=== PATIENT | male | born 1930 | race American Indian/Alaskan Native ===

== ENCOUNTER 2016-12-26 13:27 | Inpatient (IN) | payer OTHER ==
[~2016-12-26] VITALS: Ht 182.9 cm; Wt 92.1 kg
[2016-12-26 14:22] LABS: BASOPHILS % 0.4 % (0.0-2.0); EOSINOPHILS # 0.2 10^3/ul (0.0-0.5); EOSINOPHILS % 3.3 % (0.0-7.0); HEMOGLOBIN 9.7 g/dl (14.0-18.0); LYMPHOCYTES # 0.6 10^3/ul (0.8-2.9); LYMPHOCYTES % 9.1 % (15.0-51.0); MEAN CORPUSCULAR HEMOGLOBIN 27.2 pg (29.0-33.0); MEAN CORPUSCULAR HGB CONC 30.3 g/dl (32.0-37.0); MEAN CORPUSCULAR VOLUME 89.9 fl (82.0-101.0); MEAN PLATELET VOLUME 10.5 fl (7.4-10.4); MONOCYTE # 0.7 10^3/ul (0.3-0.9); NEUTROPHILS % 76.8 % (39.0-77.0); PLATELET COUNT 206 10^3/UL (140-415); RED BLOOD COUNT 3.56 10^6/ul (4.70-6.10); RED CELL DISTRIBUTION WIDTH 17.2 % (11.5-14.5)
[2016-12-26] MEDS ORDERED: AMIT25TA9 PO (14:35)
[2016-12-26] MEDS ORDERED: ASPI-664 PO (14:35)
[2016-12-26] MEDS ORDERED: LORA0.5T PO (14:36)
[2016-12-26] MEDS ORDERED: DOCU-159 PO (14:36)
--- NOTE | 2016-12-26 14:36 | RADRPT ---
PROCEDURE: XR Chest. CLINICAL INDICATION: Chest Pain. TECHNIQUE: Frontal chest x-ray was obtained. COMPARISON: None. FINDINGS: There is a suboptimal inspiratory effort. Noted is mild cardiomegaly. There is widening of the superior mediastinum compatible with ectatic v essels. No hilar masses seen. There are increased perihilar bronchovascular markings. Noted is el evation right hemidiaphragm. There is atelectasis at the right lung base. No effusion or pneumotho rax is seen. IMPRESSION: Cardiomegaly with mild central pulmonary vascular congestion. Elevated right hemidiaphragm. Right basilar atelectasis. No alveolar infiltrate or mass. .Jean-Claude Blake MD, MD Date Time Electronically viewed and signed by .Jean-Claude Blake MD, on 12/26/2016 14:35 .A/
[2016-12-26] MEDS ORDERED: TAMS0.4C2 PO (14:37)
[2016-12-26] MEDS ORDERED: RISP0.5T3 PO (14:40)
[2016-12-26] MEDS ORDERED: MEMA5TAB PO (14:40)
[2016-12-26] MEDS ORDERED: DONE10TA7 PO (14:41)
[2016-12-26 14:44] LABS: INR 1.41; PROTIME 17.3 Sec (12.2-14.2); PT RATIO 1.4
[2016-12-26 14:45] LABS: PARTIAL THROMBOPLASTIN TIME 32.4 Sec (25.0-35.0)
[2016-12-26 16:21] LABS: CALCIUM 8.6 mg/dl (8.4-10.2); CREATININE 1.1 mg/dl (0.61-1.24); POTASSIUM 4.8 mmol/L (3.5-5.1)
[2016-12-26 16:32] LABS: TROPONIN-I 0.046 ng/ml (0.00-0.12)
[2016-12-26] MEDS ORDERED: SOD CHLORIDE 0.9% 1,000 ML IV SCH ×2 (17:17→17:50)
--- NOTE | 2016-12-26 17:25 | ERA ---
ER Documentation Chief Complaint Date/Time DATE: 12/26/16 TIME: 17:20 Chief Complaint SYNCOPAL EPISODE WHILE WALKING WITNESSED BY DAUGHTER. NO NEURO CHANGES. HPI This is an 86-year-old male presents to the emergency room for evaluation of a syncopal episode. According to the daughter the patient was walking in his care home and felt dizzy momentarily lost consciousness. He did not hit his head because nursing staff caught him. The patient does have a history of dementia and is unable to give a detailed history. The patient was brought to the emergency room for further evaluation. He denies any active chest pain shortness of breath or dizziness at this time. ROS All systems reviewed and are negative except as per history of present illness. Medications Home Meds Reported Medications Donepezil* (Donepezil*) 10 Mg Tablet, 10 MG PO DAILY, #30 TAB 12/26/16 Memantine* (Namenda*) 5 Mg Tablet, 5 MG PO BID, #60 TAB 12/26/16 Risperidone* (Risperidone*) 0.5 Mg Tablet, 0.5 MG PO QHS, TAB 12/26/16 Tamsulosin Hcl* (Tamsulosin Hcl*) 0.4 Mg Cap.er.24h, 0.4 MG PO HS, CAP 12/26/16 Lorazepam* (Lorazepam*) 0.5 Mg Tablet, 0.5 MG PO Q4 Y for PAIN, TAB 12/26/16 Docusate Sodium* (Docusate Sodium*) 100 Mg Capsule, 200 MG PO QHS, #60 CAP 12/26/16 Aspirin* (Aspirin* EC) 81 Mg Tablet.dr, 81 MG PO DAILY, TAB 12/26/16 Amitriptyline Hcl* (Amitriptyline Hcl*) 25 Mg Tablet, 25 MG PO QHS, #30 TAB 12/26/16 Allergies Allergies: Coded Allergies: No Known Allergy (Unverified , 12/26/16) PMhx/Soc Hx Alcohol Use: No Hx Substance Use: No Hx Tobacco Use: No Smoking Status: Unknown if ever smoked Physical Exam Vitals Vital Signs Date Time Temp Pulse Resp B/P Pulse Ox O2 Delivery O2 Flow Rate FiO2 12/26/16 15:00 98.9 83 19 122/65 100 Room Air 12/26/16 13:31 98.9 90 18 129/67 98 Physical Exam INITIAL VITAL SIGNS: Reviewed by me GENERAL: The patient is well developed and appropriate for usual state of health in no apparent distress HEENT: Pupils equal, round, and reactive to light. EOMI. There is no scleral icterus. NECK: C-spine is soft and supple, there is no meningismus. There is no cervical lymphadenopathy. LUNGS: Clear to auscultation bilaterally. There are no rales, wheezes or rhonchi. HEART: Irregularly irregular rhythm, , no murmurs, clicks, rubs or gallops. ABDOMEN: Soft, non-tender, non-distended. There are bowel sounds in all four quadrants. No rebound or guarding. EXTREMITIES: There is no peripheral cyanosis or edema. No focal swelling or erythema. NEUROLOGICAL: The patient moves all four extremities with 5/5 strength. Cranial nerves II - XII are intact. Normal gait. Alert and oriented SKIN: There is no apparent rash or petechiae. HEME/LYMPHATIC: There is no evidence of excessive bruising or lymphedema. PSYCHIATRIC: The patient does not appear anxious or depressed. Result Diagram: 12/26/16 1402 12/26/16 1545 Results 24 hrs Laboratory Tests Test 12/26/16 14:02 12/26/16 15:45 White Blood Count 7.010^3/ul Red Blood Count 3.5610^6/ul Hemoglobin 9.7g/dl Hematocrit 32.0% Mean Corpuscular Volume 89.9fl Mean Corpuscular Hemoglobin 27.2pg Mean Corpuscular Hemoglobin Concent 30.3g/dl Red Cell Distribution Width 17.2% Platelet Count 45308^3/UL Mean Platelet Volume 10.5fl Neutrophils % 76.8% Lymphocytes % 9.1% Monocytes % 10.0% Eosinophils % 3.3% Basophils % 0.4% Nucleated Red Blood Cells % 0.0/100WBC Neutrophils # (Manual) 510^3/ul Lymphocytes # 0.610^3/ul Monocytes # 0.710^3/ul Eosinophils # 0.210^3/ul Basophils # 0.010^3/ul Nucleated Red Blood Cells # 0.010^3/ul Prothrombin Time 17.3Sec Prothrombin Time Ratio 1.4 INR International Normalized Ratio 1.41 Activated Partial Thromboplast Time 32.4Sec Sodium Level 141mmol/L Potassium Level 4.8mmol/L Chloride Level 103mmol/L Carbon Dioxide Level 23mmol/L Anion Gap 20 Blood Urea Nitrogen 47mg/dl Creatinine 1.10mg/dl Glucose Level 115mg/dl Calcium Level 8.6mg/dl Troponin I 0.046ng/ml Current Medications Medications (Trade) Dose Ordered Sig/Elbert Route PRN Reason Start Time Stop Time Status Last Admin Dose Admin Aspirin (Aspirin) 325 mg ONCE ONCE PO 12/26/16 17:30 12/26/16 17:31 Procedures/MDM EKG: Rate/Rhythm: A. fib QRS, ST, T-waves: [No changes consistent w/ acute ischemia] Impression: Atrial fibrillation Chest X-ray 1V Interpreted by me: Soft Tissue: No acute abnormalities Bones: No acute abnormalities Mediastinum/Cardiac Silhouette/Lungs: [No acute abnormalities]\ This 86-year-old male presents to the emergency room for evaluation of a syncopal episode. This patient had momentary loss of consciousness while walking in his care home. When I evaluated this patient is hemodynamically stable, however he could not give a detailed history secondary to his dementia. His daughter is at bedside and states the patient is at his normal baseline mental status. Lab work was obtained including EKG which showed atrial fibrillation. This patient has no previous history of atrial fibrillation and given his recent syncopal episode he will be placed in for admission at this time for echocardiogram, cardiology evaluation. The patient was given a full dose aspirin in the emergency room of 325 mg. I did not start heparin on this patient given his fall history. Departure Diagnosis: Primary Impression: Syncope Additional Impression: New onset atrial fibrillation Condition: Stable QUINCY BASHIR DO Dec 26, 2016 17:25
[2016-12-26] MEDS ORDERED: ACETAMINOPHEN 325 MG TAB PO PRN (17:30)
[2016-12-26] MEDS ORDERED: ASPIRIN 325 MG TAB PO ONE (17:30)
[2016-12-26] MEDS ORDERED: ONDANSETRON 4 MG INJ IV PRN ×2 (17:30→18:00)
[2016-12-26] MEDS ORDERED: NACL 0.9% 3 ML SYG IV SCH (18:00)
[2016-12-26 18:18] LABS: ADD UMIC YES; UR ASCORBIC ACID 20 mg/dL (NEGATIVE); UR BILIRUBIN (Dip) NEGATIVE (NEGATIVE); UR BLOOD (Dip) NEGATIVE (NEGATIVE); UR CLARITY SLIGHTLY CLOUDY (CLEAR); UR COLOR YELLOW (YELLOW); UR GLUCOSE (Dip) NEGATIVE (NEGATIVE); UR KETONES (Dip) NEGATIVE (NEGATIVE); UR LEUKOCYTE ESTERASE (Dip) NEGATIVE Leu/ul (NEGATIVE); UR MUCUS FEW /HPF (NONE SEEN); UR NITRITE (Dip) NEGATIVE (NEGATIVE); UR RBC 1 /HPF (0-5); UR SPECIFIC GRAVITY (Dip) 1.023 (1.003-1.030); UR TOTAL PROTEIN (Dip) 2+ mg/dl (NEGATIVE); UR UROBILINOGEN (Dip) 2+ mg/dL (NEGATIVE)
--- NOTE | 2016-12-26 18:27 | HP ---
Date/Time of Note Date/Time of Note DATE: 12/26/16 TIME: 18:05 Assessment/Plan VTE Prophylaxis VTE Prophylaxis Intervention: heparin Lines/Catheters IV [facility]ter [facility] (from [facility]): Saline Lock Assessment/Plan Chief Complaint/Hosp Course Patient is a 86-year-old male with a past medical history significant for moderate to severe dementia who presents to [facility] for a syncopal episode, found to be in A. fib. Assessment and problem list Atrial fibrillation, rate controlled Syncope, momentary with no residual effect Dementia, moderate to severe BPH Mood disorder, questionable likely secondary to dementia Anemia, normocytic Pulmonary edema cardiomegaly Plan -Cardiology has been consulted for new onset A. fib, currently rate is within acceptable limits. Echocardiogram pending -chads2 1-2 depending if patient actually has a-fib, has-bled score 2, which has a 4.1% risk in one study for major bleed. This patient is mod risk based on has-bled, but combined with fall risk, as patient has mod-severe dementia, refusing to use assistance, and recent fall, patient would be a higher risk candidate for anticoagulation. Will defer to cardiology recs for anti- coagulation. -Likely multifactorial, after reviewing patient's medication list from the shelter, patient was given scheduled Ativan multiple times a day as well as Risperdal, all which could affect mentation and cause a syncopal episode, combined with new onset arrhythmia and an elevated BUN to creatinine ratio which may show signs of volume depletion, may have caused his syncopal episode. -UA and U tox pending -Continue home meds as able -prelim workup for anemia ordered -Although Ativan may have caused patient syncopal episode, patient has been getting scheduled Ativan for many months if not years, will make it available as patient may go through withdrawal if unavailable. -Patient was given 1 L of fluids, given questionable CHF findings on chest x-ray , will be cautious with fluids -We will monitor closely on the telemetry floor. Problems: HPI/ROS Admit Date/Time Admit Date/Time Hx of Present Illness Patient is a 86-year-old male with a past medical history of moderate to severe dementia, mood disorder, BPH who presents to [facility] after a syncopal episode at the shelter. Patient's daughter was visiting the patient and taking them on a walk when patient had a brief 2 second syncopal episode which he spontaneously returned to baseline without any residual effects. Patient is currently at baseline mentation per daughter, most of the HPI is taken from daughter at bedside as patient is baseline altered due to his dementia. Patient has been taking medication including Ativan and Risperdal at his shelter given the fact that he would try to leave on his own and would likely get lost. Patient has no apparent history of cardiac or arrhythmia and appears to have good follow-up with medical care. Patient also has mild impairment with ambulation, however patient refuses to use a cane. Patient's diet is varied and patient has a very healthy appetite. Patient does not complain of any chest pain, shortness of breath, difficulty ambulating, nausea, vomiting, pain at this time. Patient does converse in Malagasy, and appears oriented, however does have moments of confusion due to his long-standing history of dementia. Patient admitted for new onset a-fib and syncope. PMH: Dementia, BPH, mood disorder questionable likely secondary to dementia PSH: None Social: Denies smoking, drinking, drugs Meds: Aspirin, donepezil, amitriptyline, Ativan scheduled, Namenda, Risperdal, Flomax PMH/Family/Social Social History Smoking Status: Unknown if ever smoked Exam/Review of Systems Vital Signs Vitals Vital Signs Date Time Temp Pulse Resp B/P Pulse Ox O2 Delivery O2 Flow Rate FiO2 12/26/16 15:00 98.9 83 19 122/65 100 Room Air Exam Exam Physical exam General: Patient is laying in bed and answers questions Mentation: Patient is alert and oriented to person,place, questionable to situation and follow command Head: Normocephalic atraumatic Eyes: EOMI, pupils reactive to light Neck: Supple, nontender, midline Respiratory: Clear to auscultation bilaterally Cardiovascular: regular rate, no obvious murmurs Gastrointestinal: non-tender to palpation, bowel sounds heard. Neurological: Moves all extremities spontaneously Skin: very mild 2+ non-pitting edema bilat LE Labs Result Diagram: 12/26/16 1402 12/26/16 1545 Medications Medications Current Medications Sodium Chloride (NS) 1,000 ml @ 80 mls/hr [id number] IV Last administered on 12/26t 17:38; Admin Dose 80 MLS/HR; Start 12/26/16 at 17:17; Stop 12/27/16 at 05: 46 Ondansetron HCl (Zofran Inj) 4 mg Q6H PRN IV NAUSEA AND/OR VOMITING; Start at 18:00; Status UNV Heparin Sodium (Porcine) (Heparin (5000 Units/0.5 ml)) 5,000 unit Q8 SC ; Start 12/26/16 at 22:00; Status UNV Amitriptyline HCl (Elavil) 25 mg QHS PO ; Start 12/26/16 at 21:00; Status UNV Aspirin (Halfprin) 81 mg DAILY PO ; Start 12/27/16 at 09:00; Status UNV Docusate Sodium (Colace) 200 mg QHS PO ; Start 12/26/16 at 21:00; Status UNV Donepezil HCl (Aricept) 10 mg DAILY PO ; Start 12/27/16 at 09:00; Status UNV Memantine (Namenda) 5 mg BID PO ; Start 12/26/16 at 21:00; Status UNV Risperidone (Risperdal) 0.5 mg QHS PO ; Start 12/26/16 at 21:00; Status UNV Tamsulosin HCl (Flomax) 0.4 mg HS PO ; Start 12/26/16 at 21:00; Status UNV MARYSE BRAVO Dec 26, 2016 18:21
[2016-12-26 19:26] LABS: BARBITURATES Negative (NEGATIVE); BENZODIAZEPINES Negative (NEGATIVE); CANNABINOIDS Negative (NEGATIVE); COCAINE Negative (NEGATIVE); OPIATES Negative (NEGATIVE)
[2016-12-26 20:08] LABS: TROPONIN-I 0.051 ng/ml (0.00-0.12)
[2016-12-26 20:11] LABS: CK-MB 3.35 ng/ml (0.0-2.4)
[2016-12-26 20:50] VITALS: TEMP 98.9
[2016-12-26] MEDS: AMITRIPTYLINE 25 MG TAB PO SCH (21:00)
[2016-12-26 21:18] VITALS: PULSE 93
[2016-12-26 21:55] VITALS: Ht 182.9 cm; Wt 92.1 kg
[2016-12-26] MEDS ORDERED: ZOLPIDEM 5 MG TAB PO ONE (23:00)
[2016-12-26] MEDS: TAMSULOSIN (SR) 0.4 MG CAP PO SCH (23:35)
[2016-12-26] MEDS: MEMANTINE 5 MG TAB PO SCH (23:36)
[2016-12-26] MEDS: RISPERIDONE 0.25 MG TAB PO SCH (23:36)
[2016-12-26] MEDS: DOCUSATE SODIUM 100 MG CAP PO SCH (23:36)
[2016-12-26] MEDS: HEPARIN 5,000 UNIT/0.5 ML VIAL SC SCH (23:37)
[2016-12-26 23:59] VITALS: BP 117/68; RESP 18
[2016-12-27] VITALS (13 sets, daily range): BP systolic 113–121; BP diastolic 62–87; PULSE 43–96; RESP 16–19
[2016-12-27] MEDS: IPRATROPIUM (NEB) 0.5 MG/2.5 ML AMP HHN PRN (01:28)
[2016-12-27] MEDS: LEVALBUTEROL (NEB) 0.63 MG/3 ML AMP HHN PRN (01:28)
--- NOTE | 2016-12-27 02:46 | RADRPT ---
PROCEDURE: Noncontrast CT Head. CLINICAL INDICATION: Syncopal episode TECHNIQUE: Noncontrast CT of the head was obtained. The administered radiation dose was CTDI vol = 41 mGy, DLP = 810 mGy-cm. COMPARISON: No pertinent prior examinations were submitted for comparison. FINDINGS: The ventricles and cortical sulci are moderately enlarged. There is moderate decreased attenuation within the periventricular and subcortical white matter compatible with chronic microvascular change s. There is no acute intracranial hemorrhage or extra-axial fluid collection. There is no mass effect . No midline shift is identified. There is no loss of kearney-white differentiation to suggest acute in farction. The orbits are within normal limits. The paranasal sinuses are well aerated. No destructive osseous lesion is identified. IMPRESSION: No acute findings. Moderate diffuse parenchymal volume loss and chronic microvascular changes. RPTAT: HIKT .Hunter Aburto MD, MD Date Time Electronically viewed and signed by .Hunter Aburto MD, on 12/27/2016 02:46 .T/
[2016-12-27 03:25] LABS: TROPONIN-I 0.049 ng/ml (0.00-0.12)
[2016-12-27 03:30] LABS: CK-MB 2.86 ng/ml (0.0-2.4)
[2016-12-27 06:39] LABS: RETICULOCYTE COUNT % 3.2 % (0.5-1.5)
[2016-12-27 06:40] LABS: ABNORMAL IP MESSAGE 1; BASOPHILS % 0.4 % (0.0-2.0); EOSINOPHILS # 0.1 10^3/ul (0.0-0.5); HEMATOCRIT 29.3 % (42.0-52.0); LYMPHOCYTES # 0.6 10^3/ul (0.8-2.9); LYMPHOCYTES % 7.7 % (15.0-51.0); MEAN CORPUSCULAR HEMOGLOBIN 27.4 pg (29.0-33.0); MEAN CORPUSCULAR HGB CONC 30.7 g/dl (32.0-37.0); MEAN CORPUSCULAR VOLUME 89.3 fl (82.0-101.0); MEAN PLATELET VOLUME 10.7 fl (7.4-10.4); MONOCYTE # 0.6 10^3/ul (0.3-0.9); MONOCYTES % 8.2 % (0.0-11.0); NEUTROPHILS % 82.3 % (39.0-77.0); PLATELET COUNT 194 10^3/UL (140-415); POSITIVE DIFF @See below; RED BLOOD COUNT 3.28 10^6/ul (4.70-6.10); RED CELL DISTRIBUTION WIDTH 17.3 % (11.5-14.5); WHITE BLOOD COUNT 7.2 10^3/ul (4.8-10.8)
[2016-12-27] MEDS: HEPARIN 5,000 UNIT/0.5 ML VIAL SC SCH ×3 (06:51→23:25)
[2016-12-27 07:12] LABS: ALBUMIN 3.3 g/dl (3.3-4.9); BILIRUBIN,INDIRECT 0.7 mg/dl (0-1.1); BILIRUBIN,TOTAL 0.7 mg/dl (0.2-1.3); TOTAL PROTEIN 6.4 g/dl (6.1-8.1)
[2016-12-27 07:13] LABS: IRON 22 ug/dl (35-150)
[2016-12-27 07:14] LABS: CALCIUM 8.4 mg/dl (8.4-10.2); CREATININE 1.13 mg/dl (0.61-1.24); MAGNESIUM 2.2 mg/dl (1.7-2.5); PHOSPHORUS 4.3 mg/dl (2.5-4.9); POTASSIUM 4.6 mmol/L (3.5-5.1)
[2016-12-27 07:22] LABS: TOTAL IRON BINDING CAPACITY 278 ug/dl (241-421)
[2016-12-27 07:44] LABS: FERRITIN 40.7 ng/ml (11.1-264.0)
--- NOTE | 2016-12-27 09:10 | RADRPT ---
PROCEDURE: XR Chest. CLINICAL INDICATION: 86-year-old male with "edema". TECHNIQUE: Single frontal view of the chest was obtained. COMPARISON: None FINDINGS: Monitor electrodes project across the chest. Degenerative osteophytes are noted in the thoracic and upper lumbar spine. The heart is enlarged with elevation of the right diaphragm. The cardiomedias tinal silhouette and hilar structures are normal. The pulmonary vasculature is equilibrated. There are atherosclerotic calcifications in the ectatic left-sided thoracic aorta. There are interstitial perihilar infiltrates with areas of plate-like atelectasis in the right lower lung field. There are bilateral pleural effusions. The right pleural effusion is larger. IMPRESSION: 1. Cardiomegaly with mild CHF and early interstitial pulmonary edema associated with small pleural e ffusions. 2. Elevated right hemidiaphragm. This finding is little changed as compared to a prior chest x-ray dated 12/26/2016. 3. 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 4. Atherosclerotic vascular disease. RPTAT:AAJJ Physician Ibrahima Date Time Electronically viewed and signed by Physician Ibrahima on 12/27/2016 09:10 /
[2016-12-27] MEDS: DONEPEZIL 10 MG TAB PO SCH ×2 (11:03→12:45)
[2016-12-27] MEDS: ASPIRIN (EC) 81 MG TAB PO SCH ×2 (11:04→12:45)
[2016-12-27] MEDS: MEMANTINE 5 MG TAB PO SCH ×3 (11:04→20:35)
--- NOTE | 2016-12-27 11:36 | CONS ---
DATE OF ADMISSION: 12/26/2016 DATE OF CONSULTATION: 12/27/2016 REASON FOR CONSULTATION: Syncope, newly diagnosed atrial fibrillation. HISTORY OF PRESENT ILLNESS: The patient is an 86-year-old gentleman with moderate to severe dementia. Most of my history is obtained from the chart review as the patient is unable to provide further history. Apparently, his daughter was visiting him when the patient was noted to have a 2 second loss of consciousness with return to baseline. He has been on antipsychotic and sedatives. After being admitted here, he was diagnosed with atrial fibrillation and a controlled rate. Currently, he appears at baseline. On x-ray, pulmonary edema is noted as well. PAST MEDICAL HISTORY: 1. Dementia. 2. BPH. MEDICATIONS PRIOR TO ADMISSION: 1. Aspirin. 2. Donepezil. 3. Amitriptyline. 4. Ativan. 5. Namenda. 6. Respirdal. 7. Flomax. PHYSICAL EXAMINATION: GENERAL: He is resting comfortably in the hospital bed in no distress. VITAL SIGNS: Temperature 98.2, pulse 76, blood pressure 118/66. CARDIAC: Reveals an irregularly irregular rhythm with slight systolic murmur appreciated. LUNGS: Clear to auscultation bilaterally. ABDOMEN: Soft. EXTREMITIES: Reveal no edema. MEDICATIONS REVIEWED: 1. Aspirin. 2. Donepezil. 3. Levalbuterol. 4. Amitriptyline. 5. Namenda. 6. Respirdal. 7. Flomax. 8. Lorazepam. LABORATORY: Results reviewed, anemia noted. Hematocrit 29.3, platelet count 194. Sodium 139, potassium 4.6, BUN 45, creatinine 1.1. ASSESSMENT: Newly diagnosed atrial fibrillation, chronicity is difficult to assess given the patient's inability to provide history and apparent lack of symptoms. Dr. Dragan Wall's assessment of the need for anticoagulation is appreciated. Given the patient's dementia, it is a difficult decision to make as I do not know him. While he does qualify for anticoagulation from a CHADS risk perspective, I will defer the ultimate decision to his physician at his [facility] facility who knows whether or not he is too high risk for anticoagulation as he reported he has noncompliance and frequent falls. His rate is controlled. As such, I would not add any other medications. His syncope is questionable whether it is cardiac or perhaps due to over medication with sedatives. An echocardiogram is pending. I do not believe further work up is necessitated at this time. Dictated By: Vitor Yang MD /[email or web address]/[email or web address] /Document#: [id number]
[2016-12-27] MEDS: LEVETIRACETAM 500 MG (PMX) 100 ML IVPB SCH ×2 (12:16→21:15)
--- NOTE | 2016-12-27 13:45 | PN ---
Date/Time of Note Date/Time of Note DATE: 12/27/16 TIME: 13:41 Assessment/Plan VTE Prophylaxis VTE Prophylaxis Intervention: heparin Lines/Catheters IV Catheter Type (from [facility]): Saline Lock Urinary Cath still in place: No Assessment/Plan Chief Complaint/Hosp Course Patient is a 86-year-old male with a past medical history significant for moderate to severe dementia who presents to [facility] for a syncopal episode, found to be in A. fib. Assessment and problem list Atrial fibrillation, rate controlled Syncope, momentary with no residual effect ?seizure Dementia, moderate to severe BPH Mood disorder, questionable likely secondary to dementia Anemia, normocytic Pulmonary edema cardiomegaly Plan -new onset possible seizure overnight. CT neg for CVA. neurology, Dr. Reyes consulted. MRI and EEG ordered. started keppra. -Cardiology has been consulted for new onset A. fib, currently rate is within acceptable limits. Echocardiogram pending. -chads2 1-2 depending if patient actually has a-fib, has-bled score 2, which has a 4.1% risk in one study for major bleed. This patient is mod risk based on has-bled, but combined with fall risk, as patient has mod-severe dementia, refusing to use assistance, and recent fall, patient would be a higher risk candidate for anticoagulation. Will defer to cardiology recs for anti- coagulation. -patient negative for benzo, medication list is likely outdated. -Continue home meds as able -prelim workup for anemia shows mixed possibilities. components show iron deficiency more likely. monitor for now, transfuse as needed. Will consider heme /onc consult if needed. -We will monitor closely on the telemetry floor. Problems: Subjective 24 Hr Interval Summary Free Text/Dictation resting comfortably in bed Exam/Review of Systems Vital Signs Vitals Vital Signs Date Time Temp Pulse Resp B/P Pulse Ox O2 Delivery O2 Flow Rate FiO2 12/27/16 13:35 85 12/27/16 11:25 98.3 17 113/62 100 12/27/16 09:13 3.0 12/27/16 08:00 Nasal Cannula Intake and Output 12/26/16 12/26/16 12/27/16 14:59 22:59 06:59 Intake Total 400 ml Balance 400 ml Exam Physical exam General: Patient is laying in bed and answers questions Mentation: Patient is alert and oriented to person,place, questionable to situation, but follows command Head: Normocephalic atraumatic Eyes: EOMI, pupils reactive to light Neck: Supple, nontender, midline Respiratory: Clear to auscultation bilaterally Cardiovascular: regular rate, no obvious murmurs Gastrointestinal: non-tender to palpation, bowel sounds heard. Neurological: Moves all extremities spontaneously Skin: very mild 2+ non-pitting edema bilat LE Results Result Diagram: 12/27/1628 12/27/1628 Results 24 hrs Laboratory Tests Test 12/26/16 14:02 12/26/16 15:45 12/26/16 17:52 12/26/16 19:00 White Blood Count 7.0 Red Blood Count 3.56 L Hemoglobin 9.7 L Hematocrit 32.0 L Mean Corpuscular Volume 89.9 Mean Corpuscular Hemoglobin 27.2 L Mean Corpuscular Hemoglobin Concent 30.3 L Red Cell Distribution Width 17.2 H Platelet Count 206 Mean Platelet Volume 10.5 H Neutrophils % 76.8 Lymphocytes % 9.1 L Monocytes % 10.0 Eosinophils % 3.3 Basophils % 0.4 Nucleated Red Blood Cells % 0.0 Neutrophils # (Manual) 5 Lymphocytes # 0.6 L Monocytes # 0.7 Eosinophils # 0.2 Basophils # 0.0 Nucleated Red Blood Cells # 0.0 Prothrombin Time 17.3 H Prothrombin Time Ratio 1.4 INR International Normalized Ratio 1.41 Activated Partial Thromboplast Time 32.4 Sodium Level 141 Potassium Level 4.8 Chloride Level 103 Carbon Dioxide Level 23 Anion Gap 20 H Blood Urea Nitrogen 47 H Creatinine 1.10 Glucose Level 115 Calcium Level 8.6 Troponin I 0.046 0.051 Urine Color YELLOW Urine Clarity SLIGHTLY CLOUDY A Urine pH 5.0 Urine Specific [place] 1.023 Urine Ketones NEGATIVE Urine Nitrite NEGATIVE Urine Bilirubin NEGATIVE Urine Urobilinogen 2+ H Urine Leukocyte Esterase NEGATIVE Urine Microscopic RBC 1 Urine Microscopic WBC 2 Urine Mucus FEW A Urine Hemoglobin NEGATIVE Urine Glucose NEGATIVE Urine Total Protein 2+ H Urine Opiates Screen Negative Urine Barbiturates Negative Urine Amphetamines Screen Negative Urine Benzodiazepines Screen Negative Urine Cocaine Screen Negative Urine Cannabinoids Negative Creatine Kinase 62 Creatine Kinase Index 5.4 Creatinine Kinase MB (Mass) 3.35 H Test 12/27/16 01:20 12/27/16 02:45 12/27/16 05:28 Bedside Glucose 123 Creatine Kinase 48 Creatine Kinase Index 6.0 Creatinine Kinase MB (Mass) 2.86 H Troponin I 0.049 White Blood Count 7.2 Red Blood Count 3.28 L Hemoglobin 9.0 L Hematocrit 29.3 L Mean Corpuscular Volume 89.3 Mean Corpuscular Hemoglobin 27.4 L Mean Corpuscular Hemoglobin Concent 30.7 L Red Cell Distribution Width 17.3 H Platelet Count 194 Mean Platelet Volume 10.7 H Neutrophils % 82.3 H Lymphocytes % 7.7 L Monocytes % 8.2 Eosinophils % 1.0 Basophils % 0.4 Nucleated Red Blood Cells % 0.0 Neutrophils # (Manual) 6 Lymphocytes # 0.6 L Monocytes # 0.6 Eosinophils # 0.1 Basophils # 0.0 Nucleated Red Blood Cells # 0.0 Absolute Reticulocyte Count 0.101 Percent Reticulocyte Count 3.2 H Sodium Level 139 Potassium Level 4.6 Chloride Level 107 Carbon Dioxide Level 22 Anion Gap 15 Blood Urea Nitrogen 45 H Creatinine 1.13 Glucose Level 102 Calcium Level 8.4 Phosphorus Level 4.3 Magnesium Level 2.2 Iron Level 22 L Total Iron Binding Capacity 278 Percent Iron Saturation 8 L Ferritin 40.7 Total Bilirubin 0.7 Direct Bilirubin 0.00 Indirect Bilirubin 0.7 Aspartate Amino Transf (AST/SGOT) 25 Alanine Aminotransferase (ALT/SGPT) 42 Alkaline Phosphatase 91 Lactate Dehydrogenase 511 Total Protein 6.4 Albumin 3.3 Medications Medications Current Medications Ondansetron HCl (Zofran Inj) 4 mg Q6H PRN IV NAUSEA AND/OR VOMITING; Start at 18:00 Heparin Sodium (Porcine) (Heparin (5000 Units/0.5 ml)) 5,000 unit Q8 SC Last administered on 12/27/16 06:51; Admin Dose 5,000 UNIT; Start 12/26/16 at 22:00 Amitriptyline HCl (Elavil) 25 mg QHS PO ; Start 12/26/16 at 21:00 Aspirin (Halfprin) 81 mg DAILY PO Last administered on 12/27/16 12:45; Admin Dose 81 MG; Start 12/27/16 at 09:00 Docusate Sodium (Colace) 200 mg QHS PO Last administered on 12/26/16 23:36; Admin Dose 200 MG; Start 12/26/16 at 21:00 Donepezil HCl (Aricept) 10 mg DAILY PO Last administered on 12/27/16 12:45; Admin Dose 10 MG; Start 12/27/16 at 09:00 Memantine (Namenda) 5 mg BID PO Last administered on 12/27/16 12:44; Admin Dose 5 MG; Start 12/26/16 at 21:00 Risperidone (Risperdal) 0.5 mg QHS PO Last administered on 12/26/16 23:36; Admin Dose 0.5 MG; Start 12/26/16 at 21:00 Tamsulosin HCl (Flomax) 0.4 mg HS PO Last administered on 12/26/16 23:35; Admin Dose 0.4 MG; Start 12/26/16 at 21:00 Lorazepam 0.5 mg 0.5 mg Q8H PRN IV agitation; Start 12/26/16 at 18:30 Levetiracetam (Keppra 500 Mg/ 100ml (Pmx)) 100 ml @ 400 mls/hr Q12 IVPB Last administered on 12/27/16 12:16; Admin Dose 400 MLS/HR; Start 12/27/16 at 11:30 MARYSE BRAVO Dec 27, 2016 13:45
--- NOTE | 2016-12-27 13:51 | CONS ---
Date/Time of Note Date/Time of Note DATE: 12/27/16 TIME: 13:43 Assessment/Plan Assessment/Plan Chief Complaint/Hosp Course An episode of passing out Problems: Additional Assessment/Plan Patient is an 86-year-old male with past medical history of severe dementia, benign prostatic hypertrophy was admitted following an episode of passing out, possible syncope. There is no history of shaking tongue bite or incontinence and has no history of seizure disorder. Neurological examination shows moderate dementia otherwise nonfocal. CT scan of the brain showed atrophy, chronic white matter disease, nothing acute. My impression is that he likely had syncope due to new onset atrial fibrillation. Doubt TIA or seizures. Plan 1 MRI of the brain 2 carotid ultrasound 3 EEG 4 no seizure medications at this time 5 discussed with patient's daughter who is present in the room 6 will follow Consultation Date/Type/Reason Admit Date/Time Date of Consultation: Dec 27, 2016 Reason for Consultation An episode of fall and possible syncope Referring Provider: MARYSE BRAVO Hx of Present Illness Patient is a 86-year-old male with a past medical history of moderate to severe dementia, mood disorder, BPH who presents to [facility] after a syncopal episode at the care home. He has been taking medication including Ativan and Risperdal at his care home. Patient has no apparent history of cardiac or arrhythmia and was found to have atrial fibrillation on admission and was also seen by cardiology as an inpatient. CT scan of the brain without contrast showed atrophy, chronic white matter disease , nothing acute. Constitutional: no complaints Eyes: no complaints ENT: no complaints Respiratory: no complaints Cardiovascular: no complaints Gastrointestinal: no complaints Genitourinary: no complaints Musculoskeletal: no complaints Skin: no complaints Neurologic: no complaints Endocrine: no complaints Lymphatic: no complaints Psychological: no complaints Immunologic: no complaints Past Medical History Medical History: other (BPH, severe dementia) Past Surgical History Past Surgical Hx: no surgical history Family History Significant Family History: no pertinent family hx Social History Alcohol Use: none Smoking Status: Never smoker Drug Use: none Exam/Review of Systems Vital Signs Vitals Vital Signs Date Time Temp Pulse Resp B/P Pulse Ox O2 Delivery O2 Flow Rate FiO2 12/27/16 13:35 85 12/27/16 11:25 98.3 17 113/62 100 12/27/16 09:13 3.0 12/27/16 08:00 Nasal Cannula Intake and Output 12/26/16 12/26/16 12/27/16 15:00 23:00 07:00 Intake Total 400 ml Balance 400 ml Exam Constitutional: alert, well developed Psych: nl mood/affect, no complaints Head: atraumatic, normocephalic Eyes: EOMI, nl conjunctiva, nl lids, nl sclera ENMT: mucosa pink and moist, nl external ears & nose, nl lips & teeth, nl nasal mucosa & septum Neck: non-tender, supple Respiratory: clear to auscultation, normal air movement Cardiovascular: nl pulses, regular rate and rhythm Gastrointestinal: nl liver, spleen, non-tender, soft Musculoskeletal: nl extremities to inspection Extremities: normal pulses Neurological: confused (Limited exam, cranial nerves appears intact, gag reflex and corneals are present, pupils are equally reacting, moving all extremities and withdraws appropriately to noxious stimulus) Skin: nl turgor Lymph: nl lymph nodes Results Result Diagram: 12/27/16 0528 12/27/16 0528 Results 24 hrs Laboratory Tests Test 12/26/16 14:02 12/26/16 15:45 12/26/16 17:52 12/26/16 19:00 White Blood Count 7.0 Red Blood Count 3.56 L Hemoglobin 9.7 L Hematocrit 32.0 L Mean Corpuscular Volume 89.9 Mean Corpuscular Hemoglobin 27.2 L Mean Corpuscular Hemoglobin Concent 30.3 L Red Cell Distribution Width 17.2 H Platelet Count 206 Mean Platelet Volume 10.5 H Neutrophils % 76.8 Lymphocytes % 9.1 L Monocytes % 10.0 Eosinophils % 3.3 Basophils % 0.4 Nucleated Red Blood Cells % 0.0 Neutrophils # (Manual) 5 Lymphocytes # 0.6 L Monocytes # 0.7 Eosinophils # 0.2 Basophils # 0.0 Nucleated Red Blood Cells # 0.0 Prothrombin Time 17.3 H Prothrombin Time Ratio 1.4 INR International Normalized Ratio 1.41 Activated Partial Thromboplast Time 32.4 Sodium Level 141 Potassium Level 4.8 Chloride Level 103 Carbon Dioxide Level 23 Anion Gap 20 H Blood Urea Nitrogen 47 H Creatinine 1.10 Glucose Level 115 Calcium Level 8.6 Troponin I 0.046 0.051 Urine Color YELLOW Urine Clarity SLIGHTLY CLOUDY A Urine pH 5.0 Urine Specific [place] 1.023 Urine Ketones NEGATIVE Urine Nitrite NEGATIVE Urine Bilirubin NEGATIVE Urine Urobilinogen 2+ H Urine Leukocyte Esterase NEGATIVE Urine Microscopic RBC 1 Urine Microscopic WBC 2 Urine Mucus FEW A Urine Hemoglobin NEGATIVE Urine Glucose NEGATIVE Urine Total Protein 2+ H Urine Opiates Screen Negative Urine Barbiturates Negative Urine Amphetamines Screen Negative Urine Benzodiazepines Screen Negative Urine Cocaine Screen Negative Urine Cannabinoids Negative Creatine Kinase 62 Creatine Kinase Index 5.4 Creatinine Kinase MB (Mass) 3.35 H Test 12/27/16 01:20 12/27/16 02:45 12/27/16 05:28 Bedside Glucose 123 Creatine Kinase 48 Creatine Kinase Index 6.0 Creatinine Kinase MB (Mass) 2.86 H Troponin I 0.049 White Blood Count 7.2 Red Blood Count 3.28 L Hemoglobin 9.0 L Hematocrit 29.3 L Mean Corpuscular Volume 89.3 Mean Corpuscular Hemoglobin 27.4 L Mean Corpuscular Hemoglobin Concent 30.7 L Red Cell Distribution Width 17.3 H Platelet Count 194 Mean Platelet Volume 10.7 H Neutrophils % 82.3 H Lymphocytes % 7.7 L Monocytes % 8.2 Eosinophils % 1.0 Basophils % 0.4 Nucleated Red Blood Cells % 0.0 Neutrophils # (Manual) 6 Lymphocytes # 0.6 L Monocytes # 0.6 Eosinophils # 0.1 Basophils # 0.0 Nucleated Red Blood Cells # 0.0 Absolute Reticulocyte Count 0.101 Percent Reticulocyte Count 3.2 H Sodium Level 139 Potassium Level 4.6 Chloride Level 107 Carbon Dioxide Level 22 Anion Gap 15 Blood Urea Nitrogen 45 H Creatinine 1.13 Glucose Level 102 Calcium Level 8.4 Phosphorus Level 4.3 Magnesium Level 2.2 Iron Level 22 L Total Iron Binding Capacity 278 Percent Iron Saturation 8 L Ferritin 40.7 Total Bilirubin 0.7 Direct Bilirubin 0.00 Indirect Bilirubin 0.7 Aspartate Amino Transf (AST/SGOT) 25 Alanine Aminotransferase (ALT/SGPT) 42 Alkaline Phosphatase 91 Lactate Dehydrogenase 511 Total Protein 6.4 Albumin 3.3 Medications Medications Current Medications Ondansetron HCl (Zofran Inj) 4 mg Q6H PRN IV NAUSEA AND/OR VOMITING; Start at 18:00 Heparin Sodium (Porcine) (Heparin (5000 Units/0.5 ml)) 5,000 unit Q8 SC Last administered on 12/27/16t 06:51; Admin Dose 5,000 UNIT; Start 12/26/16 at 22:00 Amitriptyline HCl (Elavil) 25 mg QHS PO ; Start 12/26/16 at 21:00 Aspirin (Halfprin) 81 mg DAILY PO Last administered on 12/27/16 12:45; Admin Dose 81 MG; Start 12/27/16 at 09:00 Docusate Sodium (Colace) 200 mg QHS PO Last administered on 12/26/16 23:36; Admin Dose 200 MG; Start 12/26/16 at 21:00 Donepezil HCl (Aricept) 10 mg DAILY PO Last administered on 12/27/16 12:45; Admin Dose 10 MG; Start 12/27/16 at 09:00 Memantine (Namenda) 5 mg BID PO Last administered on 12/27/16 12:44; Admin Dose 5 MG; Start 12/26/16 at 21:00 Risperidone (Risperdal) 0.5 mg QHS PO Last administered on 12/26/16 23:36; Admin Dose 0.5 MG; Start 12/26/16 at 21:00 Tamsulosin HCl (Flomax) 0.4 mg HS PO Last administered on 12/26/16 23:35; Admin Dose 0.4 MG; Start 12/26/16 at 21:00 Lorazepam 0.5 mg 0.5 mg Q8H PRN IV agitation; Start 12/26/16 at 18:30 Levetiracetam (Keppra 500 Mg/ 100ml (Pmx)) 100 ml @ 400 mls/hr Q12 IVPB Last administered on 12/27/16 12:16; Admin Dose 400 MLS/HR; Start 12/27/16 at 11:[address] brain 12/27/2016 IMPRESSION: No acute findings. Moderate diffuse parenchymal volume loss and chronic microvascular changes. RPTAT: HIKT .Hunter Aburto MD, MD Date Time Electronically viewed and signed by .Hunter Aburto MD, MD on 12/27/2016 02:46 KEVEN TREADWELL MD Dec 27, 2016 13:51
--- NOTE | 2016-12-27 16:28 | RADRPT ---
PROCEDURE: MR Brain without contrast. CLINICAL INDICATION: Seizure. TECHNIQUE: An MRI of the brain was performed on a 1.5 sandra scanner utilizing the following sequen dilia: Sagittal T1 weighted, axial T2 weighted, axial FLAIR, coronal GRE, and axial diffusion weighted with ADC mapping. COMPARISON: None FINDINGS: No evidence of restricted diffusion to suggest acute or early subacute ischemic infarction. There i s no evidence of intracranial hemorrhage, mass effect, or midline shift. No extra-axial fluid collec tions are seen. No hypointense signal abnormalities are seen on the GRE images to suggest the presence of blood degr adation products. Scattered nonspecific FLAIR/T2 signal hyperintensity foci in the subcortical and p eriventricular white matter compatible with sequelae of minimal chronic microvascular ischemic disea se. The brain parenchyma is normal in signal intensity and morphology with preservation of kearney white di fferentiation . The ventricles and subarachnoid spaces are moderately prominent compatible with a c entral cerebral and cerebellar volume loss. Grossly symmetric mesial temporal lobes given the degre e of cerebral volume loss. No gross evidence of cortical dysplasia or gliosis. The posterior fossa contents, brainstem, seventh - eighth cranial nerve complexes, pituitary axis, o rbits, paranasal sinuses, and mastoid air cells are unremarkable. Normal flow voids are visible in the proximal intracranial arteries and dural sinuses, indicating pa tency. IMPRESSION: 1. No acute or early subacute ischemic infarction or intracranial hemorrhage. 2. Mild chronic microvascular ischemic changes. 3. Moderate central cerebral and cerebellar volume loss. 4. No gross structural abnormality. RPTAT:AAJJ Physician Luis Manuel Date Time Electronically viewed and signed by Physician Luis Manuel on 12/27/2016 16:28 LAUREN/
--- NOTE | 2016-12-27 18:25 | RADRPT ---
PROCEDURE: Carotid Doppler ultrasound CLINICAL INDICATION: TIA TECHNIQUE: Carotid duplex criteria: Multiple real time, kearney scale, and color flow and spectral w aveform analysis Doppler ultrasound images of the carotid bifurcations were obtained. Measurements of carotid stenosis is based on peak systolic and diastolic velocity parameters that correlate the r esidual internal carotid diameter with [place] symptomatic carotid endarterectomy trial (NASC ET) based stenosis levels. COMPARISON: None. FINDINGS: On the right, there is heterogeneous irregular plaque at the internal carotid artery bulb . Visual estimate of the plaque is less than 50%. The peak systolic velocities are: Proximal CCA: 57.1 cm/sec. Distal CCA: 54.9 cm/sec. Proximal ICA/bulb: 54.9 cm/sec. Mid ICA: 71.2 cm/sec. Distal ICA: 85.4 cm/sec. ICA/CCA ratio: 1.3. There is no spectral broadening . The external carotid artery is patent. The vertebral artery has antegrade flow. On the left, there is mild heterogeneous irregular plaque at the internal carotid artery bulb . Vis ual estimate of the plaque is less than 50%. The peak systolic velocities are: Proximal CCA: 48.8 cm/sec. Distal CCA: 55.8 cm/sec. Proximal ICA/bulb: 72.5 cm/sec. Mid ICA: 68.1 cm/sec. Distal ICA: 60.4 cm/sec. ICA/CCA ratio: 1.2. There is no spectral broadening . The external carotid artery is patent. The vertebral artery has antegrade flow. IMPRESSION: 1. Less than 50% stenosis of the right internal carotid artery. 2. Less than 50% stenosis of the left internal carotid artery. 3. Antegrade flow in the vertebral arteries. PRIMARY PARAMETERS ADDITIONAL PARAMETERS DEGREE OF STENOSIS: ICA PSV cm/s PLAQUE ESTIMATE % ICA/CCA PSV RATIO ICA E DV cm/s NORMAL <125 cm/s NONE < 2.0 < 40 cm/s < 50% >125 cm/s < 50% > 2.0 > 40 cm/s 50% - 69% 125 -230 cm/s > 50% 2.0 - 4.0 40 - 100 cm/s >70% < OCCLUSION > 230 cm/s > 70% > 4.0 > 100 cm/s TOTAL OCCLUSION UNDETECTABLE VISIBLE PLAQUE 100% N/A N/A Mariah Dickinson, Physician Date Time Electronically viewed and signed by Mariah Dickinson Physician on 12/27/2016 18:25 LAUREN/
[2016-12-27] MEDS: DOCUSATE SODIUM 100 MG CAP PO SCH (20:35)
[2016-12-27] MEDS: RISPERIDONE 0.25 MG TAB PO SCH (20:35)
[2016-12-27] MEDS: AMITRIPTYLINE 25 MG TAB PO SCH (20:35)
[2016-12-27] MEDS: TAMSULOSIN (SR) 0.4 MG CAP PO SCH (20:35)
[2016-12-27] MEDS: LORAZEPAM 2 MG INJ IV PRN (20:57)
[2016-12-28] VITALS (11 sets, daily range): BP systolic 104–120; BP diastolic 56–81; PULSE 73–103; RESP 18–19
[2016-12-28] MEDS: HEPARIN 5,000 UNIT/0.5 ML VIAL SC SCH ×3 (07:01→21:38)
--- NOTE | 2016-12-28 07:57 | PN ---
Date/Time of Note Date/Time of Note DATE: 12/28/16 TIME: 07:55 Assessment/Plan VTE Prophylaxis VTE Prophylaxis Intervention: SCD's Lines/Catheters IV Catheter Type (from Nrs): Saline Lock Urinary Cath still in place: No Assessment/Plan Assessment/Plan Afib Mild CHF Azotemia OBS -Rate controlled afib -Possible hx of falls, so may need to avoid AC unless primary service feels patient a candidated for AC -No lasix as clinically with no overt CHF but mild congestion by CXR. Bun is 47 -will review echocardogram, Subjective 24 Hr Interval Summary Free Text/Dictation The patient with no change Exam/Review of Systems Vital Signs Vitals Vital Signs Date Time Temp Pulse Resp B/P Pulse Ox O2 Delivery O2 Flow Rate FiO2 12/28/16 07:42 97.7 79 18 104/56 97 12/28/16 04:41 3.0 12/27/16 20:20 Nasal Cannula Intake and Output 12/27/16 12/27/16 12/28/16 15:00 23:00 07:00 Intake Total 300 ml Balance 300 ml Results Result Diagram: 12/27/16 0528 12/27/16 0528 Medications Medications Current Medications Ondansetron HCl (Zofran Inj) 4 mg Q6H PRN IV NAUSEA AND/OR VOMITING; Start at 18:00 Heparin Sodium (Porcine) (Heparin (5000 Units/0.5 ml)) 5,000 unit Q8 SC Last administered on 12/28/16 07:01; Admin Dose 5,000 UNIT; Start 12/26/16 at 22:00 Amitriptyline HCl (Elavil) 25 mg QHS PO Last administered on 12/27/16 20:35; Admin Dose 25 MG; Start 12/26/16 at 21:00 Aspirin (Halfprin) 81 mg DAILY PO Last administered on 12/27/16 12:45; Admin Dose 81 MG; Start 12/27/16 at 09:00 Docusate Sodium (Colace) 200 mg QHS PO Last administered on 12/27/16 20:35; Admin Dose 200 MG; Start 12/26/16 at 21:00 Donepezil HCl (Aricept) 10 mg DAILY PO Last administered on 12/27/16 12:45; Admin Dose 10 MG; Start 12/27/16 at 09:00 Memantine (Namenda) 5 mg BID PO Last administered on 12/27/16 20:35; Admin Dose 5 MG; Start 12/26/16 at 21:00 Risperidone (Risperdal) 0.5 mg QHS PO Last administered on 12/27/16 20:35; Admin Dose 0.5 MG; Start 12/26/16 at 21:00 Tamsulosin HCl (Flomax) 0.4 mg HS PO Last administered on 12/27/16 20:35; Admin Dose 0.4 MG; Start 12/26/16 at 21:00 Lorazepam 0.5 mg 0.5 mg Q8H PRN IV agitation Last administered on 12/27/16 20: 57; Admin Dose 0.5 MG; Start 12/26/16 at 18:30 Levetiracetam (Keppra 500 Mg/ 100ml (Pmx)) 100 ml @ 400 mls/hr Q12 IVPB Last administered on 12/27/16 21:15; Admin Dose 400 MLS/HR; Start 12/27/16 at 11:30 BRIANNA MOORE MD Dec 28, 2016 07:57
--- NOTE | 2016-12-28 08:13 | RADRPT ---
Echocardiogram Report Patient Name: JJ EWING Gender: Male Date: 1930 Study Date: 27-Dec-2016 Supply Chain Technician: DEREK Location: I Ref. Physician: MARYSE BRAVO Quality: Adequate Procedures: Transthoracic echocardiogram with 2D, M-Mode, and Doppler examination, poor subcostal images. Indications: Atrial Fibrillation. Syncope. 2D/M Mode Doppler Measurement Value Normal Ranges Measurement Value Normal Ranges AoR Diam MM 3.9 cm DORA Vmax 0.6 cm2 LVIDd 2D 4.9 3.5 - 5.6 cm DORA VTI 0.6 cm2 LVIDs 2D 4.2 2.1 - 4.1 cm AV Mean Jose 2.7 m/sec LVPWd 2D 1.5 0.6 - 1.1 cm AV Mean PG 33.0 mmHg IVSd 2D 1.7 0.6 - 1.1 cm AV Peak Jose 3.6 m/sec EDV 2D 113.1 cm3 AV Peak PG 51.8 mmHg ESV 2D 75.0 cm3 AV VTI 77.8 cm LA Dimen 2D 4.5 2.3 - 4.0 cm AI Peak PG 48.1 mmHg LVOT Diam 2.1 cm AI Peak Jose 3.5 m/sec AI PHT 390.1 msec LVOT Mean Jose 0.4 m/sec LVOT Mean PG 0.8 mmHg LVOT Peak Jose 0.6 m/sec LVOT Peak PG 1.4 mmHg LVOT VTI 14.6 cm TR Peak Jose 2.8 m/sec TR Peak PG 30.7 mmHg RVSP 33.7 mmHg Findings Left Ventricle: Normal left ventricular cavity size. Moderate concentric left ventricular hypertrophy. Severe left ventricular systolic dysfunction. Ejection fraction is visually estimated at 25 %. Tissue Doppler/Mitral Doppler indices are indeterminate in this study due to the presence of atrial fibrillation, aortic regurgitation and annular calcification. Right Ventricle: Mild to moderate enlargement of right ventricle. Mild to moderate right ventricular hypokinesis. Left Atrium: There is mild enlargement of left atrium. Right Atrium: There is mild enlargement of right atrium. Atrial Septum: Not well visualized. Mitral Valve: Mild mitral leaflet calcification. Moderate mitral annular calcification. Moderate mitral valve regurgitation. Aortic Valve: Severe aortic stenosis. Aortic valve Max velocity 3.60 m/sec. Max PG 52.00 mmHg. Mean PG 33.00 mmHg. Aortic valve area 0.70 cm2. Aortic cusps appear severely calcified. Moderate aortic valve regurgitation. Tricuspid Valve: Normal appearance of the tricuspid valve. Estimated peak PA systolic pressure 34 mmHg. There is moderate tricuspid regurgitation. Pulmonic Valve: Pulmonic valve not well visualized. Pericardium: Normal pericardium with no significant pericardial effusion. Right pleural effusion seen. Aorta: There is mild aortic root dilation. There is mild aortic root calcification. IVC: The IVC is not well visualized. Pulmonary Artery: Not well visualized. Conclusions 1.Normal left ventricular cavity size. Moderate concentric left ventricular hypertrophy. Severe left ventricular systolic dysfunction. Ejection fraction is visually estimated at 25 %. Tissue Doppler/Mitral Doppler indices are indeterminate in this study due to the presence of atrial fibrillation, aortic regurgitation and annular calcification. 2.Mild to moderate enlargement of right ventricle. Mild to moderate right ventricular hypokinesis. 3.There is mild enlargement of left atrium. 4.There is mild enlargement of right atrium. 5.Mild mitral leaflet calcification. Moderate mitral annular calcification. Moderate mitral valve regurgitation. 6.Severe aortic stenosis. Aortic valve Max velocity 3.60 m/sec. Max PG 52.00 mmHg. Mean PG 33.00 mmHg. Aortic valve area 0.70 cm2. Aortic cusps appear severely calcified. Moderate aortic valve regurgitation. 7.Normal appearance of the tricuspid valve. Estimated peak PA systolic pressure 34 mmHg. There is moderate tricuspid regurgitation. 8.Normal pericardium with no significant pericardial effusion. Right pleural effusion seen. 9.There is mild aortic root dilation. There is mild aortic root calcification. 10.The IVC is not well visualized. Electronically Signed By: Nir Zapata 28-Dec-2016 08:12:52 -0700 Patient Name: JJ EWING Study Date: 27-Dec-2016 [id number]
[2016-12-28] MEDS: LEVETIRACETAM 500 MG (PMX) 100 ML IVPB SCH (08:37)
[2016-12-28] MEDS: ASPIRIN (EC) 81 MG TAB PO SCH (08:38)
[2016-12-28] MEDS: MEMANTINE 5 MG TAB PO SCH ×2 (08:38→21:35)
[2016-12-28] MEDS: DONEPEZIL 10 MG TAB PO SCH (08:38)
--- NOTE | 2016-12-28 10:30 | CONS ---
Date/Time of Note Date/Time of Note DATE: 12/28/16 TIME: 10:26 Consult Date/Type/Reason Admit Date/Time Dec 26, 2016 at 17:19 Initial Consult Date 12/27/16 Type of Consultation: Neurology Reason for Consultation syncope eval with afib Ordering Provider: MARYSE BRAVO Subjective no seizure overnight Objective Vital Signs Date Time Temp Pulse Resp B/P Pulse Ox O2 Delivery O2 Flow Rate FiO2 12/28/16 08:58 73 12/28/16 07:42 97.7 18 104/56 97 12/28/16 04:41 3.0 12/27/16 20:20 Nasal Cannula Intake and Output 12/27/16 12/27/16 12/28/16 15:00 23:00 07:00 Intake Total 300 ml 100 ml Balance 300 ml 100 ml Exam awake and alert oriented to self dysarthric, encephalopathic CN: II-XII intact Motor: no asymmetry no cogwheeling intact strength no drift Tone wnl Results/Medications Result Diagram: 12/27/16 0528 12/27/16 0528 Medications Current Medications Ondansetron HCl (Zofran Inj) 4 mg Q6H PRN IV NAUSEA AND/OR VOMITING; Start at 18:00 Heparin Sodium (Porcine) (Heparin (5000 Units/0.5 ml)) 5,000 unit Q8 SC Last administered on 12/28/16 07:01; Admin Dose 5,000 UNIT; Start 12/26/16 at 22:00 Amitriptyline HCl (Elavil) 25 mg QHS PO Last administered on 12/27/16 20:35; Admin Dose 25 MG; Start 12/26/16 at 21:00 Aspirin (Halfprin) 81 mg DAILY PO Last administered on 12/28/16 08:38; Admin Dose 81 MG; Start 12/27/16 at 09:00 Docusate Sodium (Colace) 200 mg QHS PO Last administered on 12/27/16 20:35; Admin Dose 200 MG; Start 12/26/16 at 21:00 Donepezil HCl (Aricept) 10 mg DAILY PO Last administered on 12/28/16 08:38; Admin Dose 10 MG; Start 12/27/16 at 09:00 Memantine (Namenda) 5 mg BID PO Last administered on 12/28/16 08:38; Admin Dose 5 MG; Start 12/26/16 at 21:00 Risperidone (Risperdal) 0.5 mg QHS PO Last administered on 12/27/16 20:35; Admin Dose 0.5 MG; Start 12/26/16 at 21:00 Tamsulosin HCl (Flomax) 0.4 mg HS PO Last administered on 12/27/16 20:35; Admin Dose 0.4 MG; Start 12/26/16 at 21:00 Lorazepam (Ativan) 0.5 mg Q8H PRN IV agitation Last administered on 12/27/16 20:57; Admin Dose 0.5 MG; Start 12/26/16 at 18:30 Assessment/Plan Chief Complaint/Hosp Course 86-year-old male with past medical history of severe dementia, benign prostatic hypertrophy was admitted following an episode of passing out, possible syncope. There is no history of shaking tongue bite or incontinence and has no history of seizure disorder. Neurological examination shows moderate dementia otherwise nonfocal. CT scan of the brain showed atrophy, chronic white matter disease, nothing acute. MRI consistent with atrophy, no acute changes. Carotid Duplex negative. EF: 25% high risk for fall currently off AC. Recommendations: check orthostatics continue aspirin, fall risk for AC for afib no AED, EEG was ordered currently pending EF: 25% continue management per cardiology recommendations Problems: PITA ALAS MD Dec 28, 2016 10:29
--- NOTE | 2016-12-28 12:32 | PN ---
Date/Time of Note Date/Time of Note DATE: 12/28/16 TIME: 12:26 Assessment/Plan VTE Prophylaxis VTE Prophylaxis Intervention: heparin Lines/Catheters IV Catheter Type (from Nrsg): Saline Lock Urinary Cath still in place: No Assessment/Plan Assessment/Plan Atrial fibrillation, rate controlled Syncope, momentary with no residual effect, ECHO showed EF 25% Possible new onset Seizures Dementia, moderate to severe BPH Mood disorder, questionable likely secondary to dementia Anemia, normocytic, iron deficieny with low iron saturation Pulmonary edema cardiomegaly Plan: IV keppra for seizue, neurology following, EEG pending BP stable Cardiology following, EF 25% on ECHO- Cardioloyg has to review ECHO again since they recommended no lasix at this point Check orthostatics Heparin for DVT prophylaxis will follow up will give FeSo4 fo iron deficiency Appreciate cardiology and Neurology help Subjective 24 Hr Interval Summary Free Text/Dictation less dizzy, BP stable< BUN 45. no chest pain,no palpitation , no seizure activity overnight Exam/Review of Systems Vital Signs Vitals Vital Signs Date Time Temp Pulse Resp B/P Pulse Ox O2 Delivery O2 Flow Rate FiO2 12/28/16 12:17 78 12/28/16 11:48 97.8 18 116/64 92 12/28/16 08:45 Nasal Cannula 3.0 Intake and Output 12/27/16 12/27/16 12/28/16 15:00 23:00 07:00 Intake Total 300 ml 100 ml Balance 300 ml 100 ml Exam Constitutional: alert Psych: no complaints Head: normocephalic Eyes: EOMI, nl conjunctiva, nl lids Neck: non-tender, supple Respiratory: clear to auscultation, diminished breath sounds, normal air movement Cardiovascular: irregular rhythm, nl pulses Gastrointestinal: non-tender, soft Musculoskeletal: nl extremities to inspection, nl gait and stance Neurological: BAGGER MEAT II-XII intact, nl mental status, nl speech, nl strength Results Result Diagram: 12/27/1652712/27/16527 Medications Medications Current Medications Ondansetron HCl (Zofran Inj) 4 mg Q6H PRN IV NAUSEA AND/OR VOMITING; Start at 18:00 Heparin Sodium (Porcine) (Heparin (5000 Units/0.5 ml)) 5,000 unit Q8 SC Last administered on 12/28/16t 07:01; Admin Dose 5,000 UNIT; Start 12/26/16 at 22:00 Amitriptyline HCl (Elavil) 25 mg QHS PO Last administered on 12/27/16 20:35; Admin Dose 25 MG; Start 12/26/16 at 21:00 Aspirin (Halfprin) 81 mg DAILY PO Last administered on 12/28/16 08:38; Admin Dose 81 MG; Start 12/27/16 at 09:00 Docusate Sodium (Colace) 200 mg QHS PO Last administered on 12/27/16 20:35; Admin Dose 200 MG; Start 12/26/16 at 21:00 Donepezil HCl (Aricept) 10 mg DAILY PO Last administered on 12/28/16 08:38; Admin Dose 10 MG; Start 12/27/16 at 09:00 Memantine (Namenda) 5 mg BID PO Last administered on 12/28/16 08:38; Admin Dose 5 MG; Start 12/26/16 at 21:00 Risperidone (Risperdal) 0.5 mg QHS PO Last administered on 12/27/16 20:35; Admin Dose 0.5 MG; Start 12/26/16 at 21:00 Tamsulosin HCl (Flomax) 0.4 mg HS PO Last administered on 12/27/16 20:35; Admin Dose 0.4 MG; Start 12/26/16 at 21:00 Lorazepam (Ativan) 0.5 mg Q8H PRN IV agitation Last administered on 12/27/16 20:57; Admin Dose 0.5 MG; Start 12/26/16 at 18:30 OSEI MI MD Dec 28, 2016 12:31
[2016-12-28] MEDS: TAMSULOSIN (SR) 0.4 MG CAP PO SCH (21:35)
[2016-12-28] MEDS: DOCUSATE SODIUM 100 MG CAP PO SCH (21:35)
[2016-12-28] MEDS: RISPERIDONE 0.25 MG TAB PO SCH (21:35)
[2016-12-28] MEDS: AMITRIPTYLINE 25 MG TAB PO SCH (21:35)
[2016-12-29] VITALS (13 sets, daily range): BP systolic 107–131; BP diastolic 64–75; PULSE 77–98; RESP 18–22
[2016-12-29] MEDS: HEPARIN 5,000 UNIT/0.5 ML VIAL SC SCH ×2 (05:20→14:33)
[2016-12-29 06:22] LABS: BASOPHILS % 0.6 % (0.0-2.0); EOSINOPHILS # 0.2 10^3/ul (0.0-0.5); EOSINOPHILS % 2.5 % (0.0-7.0); HEMATOCRIT 31.8 % (42.0-52.0); HEMOGLOBIN 9.4 g/dl (14.0-18.0); LYMPHOCYTES # 0.7 10^3/ul (0.8-2.9); LYMPHOCYTES % 9.5 % (15.0-51.0); MEAN CORPUSCULAR HEMOGLOBIN 26.9 pg (29.0-33.0); MEAN CORPUSCULAR HGB CONC 29.6 g/dl (32.0-37.0); MEAN CORPUSCULAR VOLUME 90.9 fl (82.0-101.0); MEAN PLATELET VOLUME 10.6 fl (7.4-10.4); MONOCYTE # 0.8 10^3/ul (0.3-0.9); MONOCYTES % 11.2 % (0.0-11.0); NEUTROPHILS % 75.9 % (39.0-77.0); PLATELET COUNT 174 10^3/UL (140-415); RED CELL DISTRIBUTION WIDTH 17.5 % (11.5-14.5); WHITE BLOOD COUNT 7.1 10^3/ul (4.8-10.8)
[2016-12-29 06:50] LABS: INR 1.43; PROTIME 17.5 Sec (12.2-14.2); PT RATIO 1.4
[2016-12-29 06:51] LABS: PARTIAL THROMBOPLASTIN TIME 41.1 Sec (25.0-35.0)
[2016-12-29 07:30] LABS: CALCIUM 8.4 mg/dl (8.4-10.2); CREATININE 1.1 mg/dl (0.61-1.24); POTASSIUM 4.7 mmol/L (3.5-5.1)
--- NOTE | 2016-12-29 08:12 | PN ---
Date/Time of Note Date/Time of Note DATE: 12/29/16 TIME: 08:11 Assessment/Plan VTE Prophylaxis VTE Prophylaxis Intervention: SCD's Lines/Catheters IV Catheter Type (from Nrs): Saline Lock Urinary Cath still in place: No Assessment/Plan Assessment/Plan Afib Mild CHF Azotemia OBS Severe cardiomyopathy -Rate controlled afib -Possible hx of falls, so may need to avoid AC unless primary service feels patient a candidated for AC -No lasix as clinically with no overt CHF but mild congestion by CXR. Bun is 45 -rx coreg and then ACEI in 1-2 days Subjective 24 Hr Interval Summary Free Text/Dictation The patient with no change Exam/Review of Systems Vital Signs Vitals Vital Signs Date Time Temp Pulse Resp B/P Pulse Ox O2 Delivery O2 Flow Rate FiO2 12/29/16 07:35 99 5.0 12/29/16 07:19 98.6 108 20 124/64 12/29/16 06:12 Nasal Cannula Intake and Output 12/28/16 12/28/16 12/29/16 15:00 23:00 07:00 Intake Total 720 ml 600 ml Balance 720 ml 600 ml Results Result Diagram: 12/29/16 0556 12/29/16 0556 Results 24 hrs Laboratory Tests Test 12/29/16 05:56 White Blood Count 7.1 Red Blood Count 3.50 L Hemoglobin 9.4 L Hematocrit 31.8 L Mean Corpuscular Volume 90.9 Mean Corpuscular Hemoglobin 26.9 L Mean Corpuscular Hemoglobin Concent 29.6 L Red Cell Distribution Width 17.5 H Platelet Count 174 Mean Platelet Volume 10.6 H Neutrophils % 75.9 Lymphocytes % 9.5 L Monocytes % 11.2 H Eosinophils % 2.5 Basophils % 0.6 Nucleated Red Blood Cells % 0.0 Neutrophils # (Manual) 5 Lymphocytes # 0.7 L Monocytes # 0.8 Eosinophils # 0.2 Basophils # 0.0 Nucleated Red Blood Cells # 0.0 Prothrombin Time 17.5 H Prothrombin Time Ratio 1.4 INR International Normalized Ratio 1.43 Activated Partial Thromboplast Time 41.1 H Sodium Level 140 Potassium Level 4.7 Chloride Level 107 Carbon Dioxide Level 25 Anion Gap 13 Blood Urea Nitrogen 36 H Creatinine 1.10 Glucose Level 104 Calcium Level 8.4 Medications Medications Current Medications Ondansetron HCl (Zofran Inj) 4 mg Q6H PRN IV NAUSEA AND/OR VOMITING; Start at 18:00 Heparin Sodium (Porcine) (Heparin (5000 Units/0.5 ml)) 5,000 unit Q8 SC Last administered on 12/29/16 05:20; Admin Dose 5,000 UNIT; Start 12/26/16 at 22:00 Amitriptyline HCl (Elavil) 25 mg QHS PO Last administered on 12/28/16 21:35; Admin Dose 25 MG; Start 12/26/16 at 21:00 Aspirin (Halfprin) 81 mg DAILY PO Last administered on 12/28/16 08:38; Admin Dose 81 MG; Start 12/27/16 at 09:00 Docusate Sodium (Colace) 200 mg QHS PO Last administered on 12/28/16 21:35; Admin Dose 200 MG; Start 12/26/16 at 21:00 Donepezil HCl (Aricept) 10 mg DAILY PO Last administered on 12/28/16 08:38; Admin Dose 10 MG; Start 12/27/16 at 09:00 Memantine (Namenda) 5 mg BID PO Last administered on 12/28/16 21:35; Admin Dose 5 MG; Start 12/26/16 at 21:00 Risperidone (Risperdal) 0.5 mg QHS PO Last administered on 12/28/16 21:35; Admin Dose 0.5 MG; Start 12/26/16 at 21:00 Tamsulosin HCl (Flomax) 0.4 mg HS PO Last administered on 12/28/16 21:35; Admin Dose 0.4 MG; Start 12/26/16 at 21:00 Lorazepam (Ativan) 0.5 mg Q8H PRN IV agitation Last administered on 12/27/16 20:57; Admin Dose 0.5 MG; Start 12/26/16 at 18:30 BRIANNA MOORE MD Dec 29, 2016 08:12
[2016-12-29] MEDS: DONEPEZIL 10 MG TAB PO SCH (09:10)
[2016-12-29] MEDS: ASPIRIN (EC) 81 MG TAB PO SCH (09:10)
[2016-12-29] MEDS: MEMANTINE 5 MG TAB PO SCH ×2 (09:10→20:19)
--- NOTE | 2016-12-29 10:21 | CONS ---
Date/Time of Note Date/Time of Note DATE: 12/29/16 TIME: 10:21 Assessment/Plan Assessment/Plan Chief Complaint/Hosp Course 86-year-old male with past medical history of severe dementia, benign prostatic hypertrophy was admitted following an episode of passing out, possible syncope. There is no history of shaking tongue bite or incontinence and has no history of seizure disorder. Neurological examination shows moderate dementia otherwise nonfocal. CT scan of the brain showed atrophy, chronic white matter disease, nothing acute. MRI consistent with atrophy, no acute changes. Carotid Duplex negative. EF: 25% high risk for fall currently off AC. Recommendations: check orthostatics continue aspirin, fall risk for AC for afib no AED, EEG was ordered currently pending EF: 25% continue management per cardiology recommendations Problems: Consultation Date/Type/Reason Admit Date/Time Dec 26, 2016 at 17:19 Initial Consult Date 12/27/16 Type of Consultation: Neurology Reason for Consultation Syncope Referring Provider: MARYSE BRAVO 24 HR Interval Summary Free Text/Dictation EEG report reviewed by Dr. Reyes 10-12 Hz no seizures normal EEG Exam/Review of Systems Vital Signs Vitals Vital Signs Date Time Temp Pulse Resp B/P Pulse Ox O2 Delivery O2 Flow Rate FiO2 12/29/16 09:11 87 12/29/16 07:35 99 5.0 12/29/16 07:19 98.6 20 124/64 12/29/16 06:12 Nasal Cannula Intake and Output 12/28/16 12/28/16 12/29/16 15:00 23:00 07:00 Intake Total 720 ml 600 ml Balance 720 ml 600 ml Results Result Diagram: 12/29/16 0556 12/29/16 0556 Results 24 hrs Laboratory Tests Test 12/29/16 05:56 White Blood Count 7.1 Red Blood Count 3.50 L Hemoglobin 9.4 L Hematocrit 31.8 L Mean Corpuscular Volume 90.9 Mean Corpuscular Hemoglobin 26.9 L Mean Corpuscular Hemoglobin Concent 29.6 L Red Cell Distribution Width 17.5 H Platelet Count 174 Mean Platelet Volume 10.6 H Neutrophils % 75.9 Lymphocytes % 9.5 L Monocytes % 11.2 H Eosinophils % 2.5 Basophils % 0.6 Nucleated Red Blood Cells % 0.0 Neutrophils # (Manual) 5 Lymphocytes # 0.7 L Monocytes # 0.8 Eosinophils # 0.2 Basophils # 0.0 Nucleated Red Blood Cells # 0.0 Prothrombin Time 17.5 H Prothrombin Time Ratio 1.4 INR International Normalized Ratio 1.43 Activated Partial Thromboplast Time 41.1 H Sodium Level 140 Potassium Level 4.7 Chloride Level 107 Carbon Dioxide Level 25 Anion Gap 13 Blood Urea Nitrogen 36 H Creatinine 1.10 Glucose Level 104 Calcium Level 8.4 Medications Medications Current Medications Ondansetron HCl (Zofran Inj) 4 mg Q6H PRN IV NAUSEA AND/OR VOMITING; Start at 18:00 Heparin Sodium (Porcine) (Heparin (5000 Units/0.5 ml)) 5,000 unit Q8 SC Last administered on 12/29/16 05:20; Admin Dose 5,000 UNIT; Start 12/26/16 at 22:00 Amitriptyline HCl (Elavil) 25 mg QHS PO Last administered on 12/28/16 21:35; Admin Dose 25 MG; Start 12/26/16 at 21:00 Aspirin (Halfprin) 81 mg DAILY PO Last administered on 12/29/16 09:10; Admin Dose 81 MG; Start 12/27/16 at 09:00 Docusate Sodium (Colace) 200 mg QHS PO Last administered on 12/28/16 21:35; Admin Dose 200 MG; Start 12/26/16 at 21:00 Donepezil HCl (Aricept) 10 mg DAILY PO Last administered on 12/29/16 09:10; Admin Dose 10 MG; Start 12/27/16 at 09:00 Memantine (Namenda) 5 mg BID PO Last administered on 12/29/16 09:10; Admin Dose 5 MG; Start 12/26/16 at 21:00 Risperidone (Risperdal) 0.5 mg QHS PO Last administered on 12/28/16 21:35; Admin Dose 0.5 MG; Start 12/26/16 at 21:00 Tamsulosin HCl (Flomax) 0.4 mg HS PO Last administered on 12/28/16 21:35; Admin Dose 0.4 MG; Start 12/26/16 at 21:00 Lorazepam (Ativan) 0.5 mg Q8H PRN IV agitation Last administered on 12/27/16 20:57; Admin Dose 0.5 MG; Start 12/26/16 at 18:30 Carvedilol (Coreg) 3.125 mg BID PO Last administered on 12/29/16t 09:11; Admin Dose 3.125 MG; Start 12/29/16 at 09:00 PITA ALAS MD Dec 29, 2016 10:21
--- NOTE | 2016-12-29 10:52 | PRO ---
DATE OF PROCEDURE: 12/28/2016 PROCEDURE PERFORMED: Electroencephalogram. HISTORY: This is an 86-year-old male with history of dementia, was admitted following an episode of passing out, possible syncope. CURRENT MEDICATIONS: None. PROCEDURE: Utilizing a 16 channel EEG machine cap scalp electrodes were applied in accordance with October 10/20 International system. Scalp to scalp and scalp to ear montages were displayed. Electrical impedances were measured and reported. DESCRIPTION OF PROCEDURE: During a resting state, posterior dominant rhythm of about 10-12 hertz were seen bi- hemispherically. Muscle artifact was noted at times during the tracing. There was no focal lateralizing or epileptiform discharge identified. Hyperventilation was not performed. Photic stimulation had a good response. INTERPRETATION: This is a normal EEG. A normal EEG does not exclude seizure disorder. Please correlate clinically. Dictated By: Monse Reyes MD /[email or web address] /Document#: [id number]
[2016-12-29] MEDS: TAMSULOSIN (SR) 0.4 MG CAP PO SCH (20:19)
[2016-12-29] MEDS: RISPERIDONE 0.25 MG TAB PO SCH (20:19)
[2016-12-29] MEDS: DOCUSATE SODIUM 100 MG CAP PO SCH (20:19)
[2016-12-29] MEDS: AMITRIPTYLINE 25 MG TAB PO SCH (20:19)
--- NOTE | 2016-12-29 22:35 | PN ---
Date/Time of Note Date/Time of Note DATE: 12/29/16 TIME: 22:34 Assessment/Plan VTE Prophylaxis VTE Prophylaxis Intervention: heparin Lines/Catheters IV Catheter Type (from Nrs): Saline Lock Urinary Cath still in place: No Assessment/Plan Assessment/Plan Atrial fibrillation, rate controlled Syncope, momentary with no residual effect, ECHO showed EF 25% Possible new onset Seizures Dementia, moderate to severe BPH Mood disorder, questionable likely secondary to dementia Anemia, normocytic, iron deficieny with low iron saturation Pulmonary edema cardiomegaly Plan: IV keppra for seizue, neurology following, EEG pending Cardiology following, EF 25% on ECHO- Cardioloyg has to review ECHO again since they recommended no lasix at this point Heparin for DVT prophylaxis will follow up will give FeSo4 fo iron deficiency Appreciate cardiology and Neurology help s/p PT evaluation , Fall risk, recommended for SNF placement Exam/Review of Systems Vital Signs Vitals Vital Signs Date Time Temp Pulse Resp B/P Pulse Ox O2 Delivery O2 Flow Rate FiO2 12/29/16 20:32 98.1 83 18 131/75 96 12/29/16 08:45 Nasal Cannula 3.0 Intake and Output 12/28/16 12/28/16 12/29/16 15:00 23:00 07:00 Intake Total 720 ml 600 ml Balance 720 ml 600 ml Results Result Diagram: 12/29/16 0556 12/29/16 0556 Results 24 hrs Laboratory Tests Test 12/29/16 05:56 White Blood Count 7.1 Red Blood Count 3.50 L Hemoglobin 9.4 L Hematocrit 31.8 L Mean Corpuscular Volume 90.9 Mean Corpuscular Hemoglobin 26.9 L Mean Corpuscular Hemoglobin Concent 29.6 L Red Cell Distribution Width 17.5 H Platelet Count 174 Mean Platelet Volume 10.6 H Neutrophils % 75.9 Lymphocytes % 9.5 L Monocytes % 11.2 H Eosinophils % 2.5 Basophils % 0.6 Nucleated Red Blood Cells % 0.0 Neutrophils # (Manual) 5 Lymphocytes # 0.7 L Monocytes # 0.8 Eosinophils # 0.2 Basophils # 0.0 Nucleated Red Blood Cells # 0.0 Prothrombin Time 17.5 H Prothrombin Time Ratio 1.4 INR International Normalized Ratio 1.43 Activated Partial Thromboplast Time 41.1 H Sodium Level 140 Potassium Level 4.7 Chloride Level 107 Carbon Dioxide Level 25 Anion Gap 13 Blood Urea Nitrogen 36 H Creatinine 1.10 Glucose Level 104 Calcium Level 8.4 Medications Medications Current Medications Ondansetron HCl (Zofran Inj) 4 mg Q6H PRN IV NAUSEA AND/OR VOMITING; Start at 18:00 Heparin Sodium (Porcine) (Heparin (5000 Units/0.5 ml)) 5,000 unit Q8 SC Last administered on 12/29/16 14:33; Admin Dose 5,000 UNIT; Start 12/26/16 at 22:00 Amitriptyline HCl (Elavil) 25 mg QHS PO Last administered on 12/29/16 20:19; Admin Dose 25 MG; Start 12/26/16 at 21:00 Aspirin (Halfprin) 81 mg DAILY PO Last administered on 12/29/16 09:10; Admin Dose 81 MG; Start 12/27/16 at 09:00 Docusate Sodium (Colace) 200 mg QHS PO Last administered on 12/29/16 20:19; Admin Dose 200 MG; Start 12/26/16 at 21:00 Donepezil HCl (Aricept) 10 mg DAILY PO Last administered on 12/29/16 09:10; Admin Dose 10 MG; Start 12/27/16 at 09:00 Memantine (Namenda) 5 mg BID PO Last administered on 12/29/16 20:19; Admin Dose 5 MG; Start 12/26/16 at 21:00 Risperidone (Risperdal) 0.5 mg QHS PO Last administered on 12/29/16 20:19; Admin Dose 0.5 MG; Start 12/26/16 at 21:00 Tamsulosin HCl (Flomax) 0.4 mg HS PO Last administered on 12/29/16 20:19; Admin Dose 0.4 MG; Start 12/26/16 at 21:00 Lorazepam (Ativan) 0.5 mg Q8H PRN IV agitation Last administered on 12/27/16 20:57; Admin Dose 0.5 MG; Start 12/26/16 at 18:30 Carvedilol (Coreg) 3.125 mg BID PO Last administered on 12/29/16 20:20; Admin Dose 3.125 MG; Start 12/29/16 at 09:00 OSEI MI MD Dec 29, 2016 22:35
[2016-12-30] VITALS (10 sets, daily range): BP systolic 105–135; BP diastolic 58–77; PULSE 74–85; RESP 17–20
[2016-12-30] MEDS: HEPARIN 5,000 UNIT/0.5 ML VIAL SC SCH ×4 (00:04→21:41)
[2016-12-30] MEDS: LORAZEPAM 2 MG INJ IV PRN ×2 (00:09→21:35)
[2016-12-30] MEDS: ASPIRIN (EC) 81 MG TAB PO SCH (08:15)
[2016-12-30] MEDS: MEMANTINE 5 MG TAB PO SCH ×3 (08:15→21:34)
[2016-12-30] MEDS: DONEPEZIL 10 MG TAB PO SCH (08:16)
[2016-12-30] MEDS: LEVALBUTEROL (NEB) 0.63 MG/3 ML AMP HHN PRN (11:26)
[2016-12-30] MEDS: IPRATROPIUM (NEB) 0.5 MG/2.5 ML AMP HHN PRN (11:26)
--- NOTE | 2016-12-30 13:17 | PN ---
Date/Time of Note Date/Time of Note DATE: 12/30/16 TIME: 13:14 Assessment/Plan VTE Prophylaxis VTE Prophylaxis Intervention: SCD's Lines/Catheters IV Catheter Type (from Nrs): Peripheral IV Urinary Cath still in place: No Assessment/Plan Assessment/Plan Afib Mild CHF Azotemia OBS Severe cardiomyopathy -Rate controlled afib -Possible hx of falls, so may need to avoid AC unless primary service feels patient a candidated for AC -Bun improved wtih Low EF, so will rx lasix and bun/creat to be monitores -on coreg and then ACEI in 1-2 days Subjective 24 Hr Interval Summary Free Text/Dictation The patient with no change Exam/Review of Systems Vital Signs Vitals Vital Signs Date Time Temp Pulse Resp B/P Pulse Ox O2 Delivery O2 Flow Rate FiO2 12/30/16 12:16 77 12/30/16 12:06 5.0 12/30/16 12:01 97.6 20 123/64 100 12/30/16 11:26 Nasal Cannula Intake and Output 12/29/16 12/29/16 12/30/16 15:00 23:00 07:00 Intake Total 500 ml 600 ml Balance 500 ml 600 ml Results Result Diagram: 12/29/16 0556 12/29/16 0556 Medications Medications Current Medications Ondansetron HCl (Zofran Inj) 4 mg Q6H PRN IV NAUSEA AND/OR VOMITING; Start at 18:00 Heparin Sodium (Porcine) (Heparin (5000 Units/0.5 ml)) 5,000 unit Q8 SC Last administered on 12/30/16 12:51; Admin Dose 5,000 UNIT; Start 12/26/16 at 22:00 Amitriptyline HCl (Elavil) 25 mg QHS PO Last administered on 12/29/16 20:19; Admin Dose 25 MG; Start 12/26/16 at 21:00 Aspirin (Halfprin) 81 mg DAILY PO Last administered on 12/30/16 08:15; Admin Dose 81 MG; Start 12/27/16 at 09:00 Docusate Sodium (Colace) 200 mg QHS PO Last administered on 12/29/16 20:19; Admin Dose 200 MG; Start 12/26/16 at 21:00 Donepezil HCl (Aricept) 10 mg DAILY PO Last administered on 12/30/16 08:16; Admin Dose 10 MG; Start 12/27/16 at 09:00 Memantine (Namenda) 5 mg BID PO Last administered on 12/30/16 08:15; Admin Dose 5 MG; Start 12/26/16 at 21:00 Risperidone (Risperdal) 0.5 mg QHS PO Last administered on 12/29/16 20:19; Admin Dose 0.5 MG; Start 12/26/16 at 21:00 Tamsulosin HCl (Flomax) 0.4 mg HS PO Last administered on 12/29/16 20:19; Admin Dose 0.4 MG; Start 12/26/16 at 21:00 Lorazepam (Ativan) 0.5 mg Q8H PRN IV agitation Last administered on 12/30/16 00:09; Admin Dose 0.5 MG; Start 12/26/16 at 18:30 Carvedilol (Coreg) 3.125 mg BID PO Last administered on 12/30/16 08:16; Admin Dose 3.125 MG; Start 12/29/16 at 09:00 BRIANNA MOORE MD Dec 30, 2016 13:16
--- NOTE | 2016-12-30 13:18 | PN ---
Date/Time of Note Date/Time of Note DATE: 12/30/16 TIME: 13:16 Assessment/Plan VTE Prophylaxis VTE Prophylaxis Intervention: heparin Lines/Catheters IV Catheter Type (from Nrsg): Peripheral IV Urinary Cath still in place: No Assessment/Plan Assessment/Plan Atrial fibrillation, rate controlled Syncope, momentary with no residual effect, ECHO showed EF 25% Possible new onset Seizures Dementia, moderate to severe BPH Mood disorder, questionable likely secondary to dementia Anemia, normocytic, iron deficieny with low iron saturation Pulmonary edema cardiomegaly Plan: IV keppra for seizue, neurology following, EEG pending Cardiology following, EF 25% on ECHO- Cardioloyg has to review ECHO again since they recommended no lasix at this point Heparin for DVT prophylaxis Appreciate cardiology and Neurology help s/p PT evaluation , Fall risk, recommended for SNF placement downgrade to med/surge floor Exam/Review of Systems Vital Signs Vitals Vital Signs Date Time Temp Pulse Resp B/P Pulse Ox O2 Delivery O2 Flow Rate FiO2 12/30/16 12:16 77 12/30/16 12:06 5.0 12/30/16 12:01 97.6 20 123/64 100 12/30/16 11:26 Nasal Cannula Intake and Output 12/29/16 12/29/16 12/30/16 15:00 23:00 07:00 Intake Total 500 ml 600 ml Balance 500 ml 600 ml Exam Constitutional: alert, intermittently confused Eyes: EOMI, nl conjunctiva, nl lids Neck: non-tender, supple Respiratory: clear to auscultation, diminished breath sounds, normal air movement Cardiovascular: irregular rhythm, nl pulses Gastrointestinal: non-tender, soft Musculoskeletal: nl extremities to inspection, nl gait and stance Neurological: CAN COVERER II-XII intact, nl mental status, nl speech, nl strength Results Result Diagram: 12/29/16 0556 12/29/16 0556 Medications Medications Current Medications Ondansetron HCl (Zofran Inj) 4 mg Q6H PRN IV NAUSEA AND/OR VOMITING; Start at 18:00 Heparin Sodium (Porcine) (Heparin (5000 Units/0.5 ml)) 5,000 unit Q8 SC Last administered on 12/30/16t 12:51; Admin Dose 5,000 UNIT; Start 12/26/16 at 22:00 Amitriptyline HCl (Elavil) 25 mg QHS PO Last administered on 12/29/16 20:19; Admin Dose 25 MG; Start 12/26/16 at 21:00 Aspirin (Halfprin) 81 mg DAILY PO Last administered on 12/30/16 08:15; Admin Dose 81 MG; Start 12/27/16 at 09:00 Docusate Sodium (Colace) 200 mg QHS PO Last administered on 12/29/16 20:19; Admin Dose 200 MG; Start 12/26/16 at 21:00 Donepezil HCl (Aricept) 10 mg DAILY PO Last administered on 12/30/16 08:16; Admin Dose 10 MG; Start 12/27/16 at 09:00 Memantine (Namenda) 5 mg BID PO Last administered on 12/30/16 08:15; Admin Dose 5 MG; Start 12/26/16 at 21:00 Risperidone (Risperdal) 0.5 mg QHS PO Last administered on 12/29/16 20:19; Admin Dose 0.5 MG; Start 12/26/16 at 21:00 Tamsulosin HCl (Flomax) 0.4 mg HS PO Last administered on 12/29/16 20:19; Admin Dose 0.4 MG; Start 12/26/16 at 21:00 Lorazepam (Ativan) 0.5 mg Q8H PRN IV agitation Last administered on 12/30/16 00:09; Admin Dose 0.5 MG; Start 12/26/16 at 18:30 Carvedilol (Coreg) 3.125 mg BID PO Last administered on 12/30/16 08:16; Admin Dose 3.125 MG; Start 12/29/16 at 09:00 OSEI MI MD Dec 30, 2016 13:18
[2016-12-30] MEDS: AMITRIPTYLINE 25 MG TAB PO SCH ×2 (21:00→21:34)
[2016-12-30] MEDS: TAMSULOSIN (SR) 0.4 MG CAP PO SCH ×2 (21:00→21:33)
[2016-12-30] MEDS: RISPERIDONE 0.25 MG TAB PO SCH ×2 (21:00→21:34)
[2016-12-30] MEDS: DOCUSATE SODIUM 100 MG CAP PO SCH ×2 (21:00→21:34)
[2016-12-31] VITALS: BP 118/61; PULSE 95; RESP 18
[2016-12-31 02:00] VITALS: BP 125/69; RESP 18
[2016-12-31] MEDS: HEPARIN 5,000 UNIT/0.5 ML VIAL SC SCH ×3 (05:11→21:01)
[2016-12-31 06:33] LABS: ABNORMAL IP MESSAGE 1; BASOPHILS % 0.5 % (0.0-2.0); EOSINOPHILS # 0.3 10^3/ul (0.0-0.5); EOSINOPHILS % 3.4 % (0.0-7.0); HEMATOCRIT 32.2 % (42.0-52.0); HEMOGLOBIN 9.3 g/dl (14.0-18.0); LYMPHOCYTES # 0.9 10^3/ul (0.8-2.9); LYMPHOCYTES % 12.1 % (15.0-51.0); MEAN CORPUSCULAR HEMOGLOBIN 26.3 pg (29.0-33.0); MEAN CORPUSCULAR HGB CONC 28.9 g/dl (32.0-37.0); MEAN CORPUSCULAR VOLUME 91.2 fl (82.0-101.0); MONOCYTE # 0.9 10^3/ul (0.3-0.9); MONOCYTES % 12.4 % (0.0-11.0); NEUTROPHILS % 71.1 % (39.0-77.0); PLATELET COUNT 182 10^3/UL (140-415); POSITIVE DIFF @See below; RED BLOOD COUNT 3.53 10^6/ul (4.70-6.10); RED CELL DISTRIBUTION WIDTH 17.2 % (11.5-14.5); WHITE BLOOD COUNT 7.6 10^3/ul (4.8-10.8)
[2016-12-31 07:00] LABS: CALCIUM 8.6 mg/dl (8.4-10.2); CREATININE 1.24 mg/dl (0.61-1.24); POTASSIUM 5.3 mmol/L (3.5-5.1)
[2016-12-31 07:23] LABS: MAGNESIUM 2.3 mg/dl (1.7-2.5); PHOSPHORUS 4.5 mg/dl (2.5-4.9)
--- NOTE | 2016-12-31 08:02 | PN ---
Date/Time of Note Date/Time of Note DATE: 12/31/16 TIME: 08:01 Assessment/Plan VTE Prophylaxis VTE Prophylaxis Intervention: SCD's Lines/Catheters IV Catheter Type (from Nrs): Saline Lock Urinary Cath still in place: No Assessment/Plan Assessment/Plan Afib Mild CHF Azotemia OBS Severe cardiomyopathy -Rate controlled afib -Possible hx of falls, so may need to avoid AC unless primary service feels patient a candidated for AC -Bun improved wtih Low EF, so will rx lasix and bun/creat to be monitored, +i/o overnight, so will increase lasix -on coreg and then ACEI in 1-2 days Subjective 24 Hr Interval Summary Free Text/Dictation the patient with no cahnge Exam/Review of Systems Vital Signs Vitals Vital Signs Date Time Temp Pulse Resp B/P Pulse Ox O2 Delivery O2 Flow Rate FiO2 12/31/16 02:00 98.0 92 18 125/69 100 12/31/16 00:17 Nasal Cannula 2.0 Intake and Output 12/30/16 12/30/16 12/31/16 15:00 23:00 07:00 Intake Total 700 ml 100 ml Balance 700 ml 100 ml Results Result Diagram: 12/31/16 0539 12/31/16 0539 Results 24 hrs Laboratory Tests Test 12/31/16 05:39 White Blood Count 7.6 Red Blood Count 3.53 L Hemoglobin 9.3 L Hematocrit 32.2 L Mean Corpuscular Volume 91.2 Mean Corpuscular Hemoglobin 26.3 L Mean Corpuscular Hemoglobin Concent 28.9 L Red Cell Distribution Width 17.2 H Platelet Count 182 Mean Platelet Volume 11.0 H Neutrophils % 71.1 Lymphocytes % 12.1 L Monocytes % 12.4 H Eosinophils % 3.4 Basophils % 0.5 Nucleated Red Blood Cells % 0.0 Neutrophils # (Manual) 5 Lymphocytes # 0.9 Monocytes # 0.9 Eosinophils # 0.3 Basophils # 0.0 Nucleated Red Blood Cells # 0.0 Sodium Level 140 Potassium Level 5.3 H Chloride Level 106 Carbon Dioxide Level 26 Anion Gap 13 Blood Urea Nitrogen 51 H Creatinine 1.24 Glucose Level 104 Calcium Level 8.6 Phosphorus Level 4.5 Magnesium Level 2.3 Medications Medications Current Medications Ondansetron HCl (Zofran Inj) 4 mg Q6H PRN IV NAUSEA AND/OR VOMITING; Start at 18:00 Heparin Sodium (Porcine) (Heparin (5000 Units/0.5 ml)) 5,000 unit Q8 SC Last administered on 12/31/16 05:11; Admin Dose 5,000 UNIT; Start 12/26/16 at 22:00 Amitriptyline HCl (Elavil) 25 mg QHS PO Last administered on 12/29/16 20:19; Admin Dose 25 MG; Start 12/26/16 at 21:00 Aspirin (Halfprin) 81 mg DAILY PO Last administered on 12/30/16 08:15; Admin Dose 81 MG; Start 12/27/16 at 09:00 Docusate Sodium (Colace) 200 mg QHS PO Last administered on 12/29/16 20:19; Admin Dose 200 MG; Start 12/26/16 at 21:00 Donepezil HCl (Aricept) 10 mg DAILY PO Last administered on 12/30/16 08:16; Admin Dose 10 MG; Start 12/27/16 at 09:00 Memantine (Namenda) 5 mg BID PO Last administered on 12/30/16 08:15; Admin Dose 5 MG; Start 12/26/16 at 21:00 Risperidone (Risperdal) 0.5 mg QHS PO Last administered on 12/29/16 20:19; Admin Dose 0.5 MG; Start 12/26/16 at 21:00 Tamsulosin HCl (Flomax) 0.4 mg HS PO Last administered on 12/29/16 20:19; Admin Dose 0.4 MG; Start 12/26/16 at 21:00 Lorazepam (Ativan) 0.5 mg Q8H PRN IV agitation Last administered on 12/30/16 21:35; Admin Dose 0.5 MG; Start 12/26/16 at 18:30 Carvedilol (Coreg) 3.125 mg BID PO Last administered on 12/30/16 08:16; Admin Dose 3.125 MG; Start 12/29/16 at 09:00 Furosemide (Lasix) 40 mg DAILY IV ; Start 12/31/16 at 09:00 Potassium Chloride (Klor-Con 20) 20 meq DAILY PO ; Start 12/31/16 at 09:00 Haloperidol (Haldol) 3 mg Q8H PRN IM AGITATION/ANXIETY; Start 12/31/16 at 02:00 BRIANNA MOORE MD Dec 31, 2016 08:01
[2016-12-31] MEDS: ASPIRIN (EC) 81 MG TAB PO SCH (08:29)
[2016-12-31] MEDS: DONEPEZIL 10 MG TAB PO SCH (08:29)
[2016-12-31] MEDS: FUROSEMIDE 40 MG INJ IV SCH (08:29)
[2016-12-31] MEDS: MEMANTINE 5 MG TAB PO SCH ×2 (08:29→21:01)
[2016-12-31 08:55] VITALS: BP 141/68; RESP 20
[2016-12-31] MEDS ORDERED: FUROSEMIDE 40 MG INJ IV SCH (09:00)
[2016-12-31] MEDS ORDERED: POTASSIUM CHLORIDE (SR) 20 MEQ TAB PO SCH (09:00)
[2016-12-31 15:44] VITALS: BP 116/72; RESP 18
[2016-12-31 19:50] VITALS: BP 136/59; RESP 16
[2016-12-31] MEDS ORDERED: NA POLYST SULFON 15 GM/60 ML BTL PO ONE (20:00)
[2016-12-31] MEDS: AMITRIPTYLINE 25 MG TAB PO SCH (21:01)
[2016-12-31] MEDS: DOCUSATE SODIUM 100 MG CAP PO SCH (21:01)
[2016-12-31] MEDS: RISPERIDONE 0.25 MG TAB PO SCH (21:01)
[2016-12-31] MEDS: TAMSULOSIN (SR) 0.4 MG CAP PO SCH (21:02)
--- NOTE | 2016-12-31 21:23 | PN ---
Date/Time of Note Date/Time of Note DATE: 12/31/16 TIME: 21:22 Assessment/Plan VTE Prophylaxis VTE Prophylaxis Intervention: heparin Lines/Catheters IV Catheter Type (from Nrsg): Saline Lock Urinary Cath still in place: No Assessment/Plan Assessment/Plan Atrial fibrillation, rate controlled Syncope, momentary with no residual effect, ECHO showed EF 25% Possible new onset Seizures Dementia, moderate to severe BPH Mood disorder, questionable likely secondary to dementia Anemia, normocytic, iron deficieny with low iron saturation Pulmonary edema cardiomegaly Plan: IV keppra for seizue, neurology following, EEG pending Cardiology following, EF 25% on ECHO- Cardioloyg has to review ECHO again since they recommended no lasix at this point Heparin for DVT prophylaxis Appreciate cardiology and Neurology help s/p PT evaluation , Fall risk, recommended for SNF placement Case management for SNF placement Subjective 24 Hr Interval Summary Free Text/Dictation no acute events, BP stable,a febrile Exam/Review of Systems Vital Signs Vitals Vital Signs Date Time Temp Pulse Resp B/P Pulse Ox O2 Delivery O2 Flow Rate FiO2 12/31/16 21:01 2.0 12/31/16 15:44 97.4 77 18 116/72 100 12/31/16 14:36 Nasal Cannula Intake and Output 12/30/16 12/30/16 12/31/16 15:00 23:00 07:00 Intake Total 700 ml 100 ml Balance 700 ml 100 ml Exam Constitutional: alert, awake Eyes: EOMI, nl conjunctiva, nl lids Neck: non-tender, supple Respiratory: clear to auscultation, diminished breath sounds, normal air movement Cardiovascular: irregular rhythm, nl pulses Gastrointestinal: non-tender, soft Musculoskeletal: nl extremities to inspection, nl gait and stance 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, nl mental status, nl speech, nl strength Results Result Diagram: 12/31/16 0539 12/31/16 0539 Results 24 hrs Laboratory Tests Test 12/31/16 05:39 White Blood Count 7.6 Red Blood Count 3.53 L Hemoglobin 9.3 L Hematocrit 32.2 L Mean Corpuscular Volume 91.2 Mean Corpuscular Hemoglobin 26.3 L Mean Corpuscular Hemoglobin Concent 28.9 L Red Cell Distribution Width 17.2 H Platelet Count 182 Mean Platelet Volume 11.0 H Neutrophils % 71.1 Lymphocytes % 12.1 L Monocytes % 12.4 H Eosinophils % 3.4 Basophils % 0.5 Nucleated Red Blood Cells % 0.0 Neutrophils # (Manual) 5 Lymphocytes # 0.9 Monocytes # 0.9 Eosinophils # 0.3 Basophils # 0.0 Nucleated Red Blood Cells # 0.0 Sodium Level 140 Potassium Level 5.3 H Chloride Level 106 Carbon Dioxide Level 26 Anion Gap 13 Blood Urea Nitrogen 51 H Creatinine 1.24 Glucose Level 104 Calcium Level 8.6 Phosphorus Level 4.5 Magnesium Level 2.3 Medications Medications Current Medications Ondansetron HCl (Zofran Inj) 4 mg Q6H PRN IV NAUSEA AND/OR VOMITING; Start at 18:00 Heparin Sodium (Porcine) (Heparin (5000 Units/0.5 ml)) 5,000 unit Q8 SC Last administered on 12/31/16 21:01; Admin Dose 5,000 UNIT; Start 12/26/16 at 22:00 Amitriptyline HCl (Elavil) 25 mg QHS PO Last administered on 12/31/16 21:01; Admin Dose 25 MG; Start 12/26/16 at 21:00 Aspirin (Halfprin) 81 mg DAILY PO Last administered on 12/31/16 08:29; Admin Dose 81 MG; Start 12/27/16 at 09:00 Docusate Sodium (Colace) 200 mg QHS PO Last administered on 12/31/16 21:01; Admin Dose 200 MG; Start 12/26/16 at 21:00 Donepezil HCl (Aricept) 10 mg DAILY PO Last administered on 12/31/16 08:29; Admin Dose 10 MG; Start 12/27/16 at 09:00 Memantine (Namenda) 5 mg BID PO Last administered on 12/31/16 21:01; Admin Dose 5 MG; Start 12/26/16 at 21:00 Risperidone (Risperdal) 0.5 mg QHS PO Last administered on 12/31/16 21:01; Admin Dose 0.5 MG; Start 12/26/16 at 21:00 Tamsulosin HCl (Flomax) 0.4 mg HS PO Last administered on 12/31/16 21:02; Admin Dose 0.4 MG; Start 12/26/16 at 21:00 Lorazepam (Ativan) 0.5 mg Q8H PRN IV agitation Last administered on 12/30/16 21:35; Admin Dose 0.5 MG; Start 12/26/16 at 18:30 Carvedilol (Coreg) 3.125 mg BID PO Last administered on 12/31/16 21:03; Admin Dose 3.125 MG; Start 12/29/16 at 09:00 Haloperidol (Haldol) 3 mg Q8H PRN IM AGITATION/ANXIETY; Start 12/31/16 at 02:00 Furosemide (Lasix) 80 mg DAILY IV Last administered on 12/31/16 08:29; Admin Dose 80 MG; Start 12/31/16 at 09:00 OSEI MI MD Dec 31, 2016 21:23
[2017-01-01 02:15] VITALS: BP 103/65; RESP 20
[2017-01-01] MEDS: HEPARIN 5,000 UNIT/0.5 ML VIAL SC SCH ×3 (05:03→20:04)
--- NOTE | 2017-01-01 07:42 | CONS ---
Date/Time of Note Date/Time of Note DATE: 01/01/17 TIME: 07:39 Assessment/Plan Assessment/Plan Chief Complaint/Hosp Course 1) chronic afib, controlled 2) Severe 3) Syncope 4) Severe LV dysfunction 5) CHF systolic and diastolic chronic 6) Dementia and confusion 7) Fall risk Problems: Additional Assessment/Plan 1) Continue beta santiago at low dose to avoid hypotension in presence of severe 2) No ALYSA at this time given avoidance of hypotension 3) anticoagulation may be associated with high risk of bleed given fall risk 4) Recommend low dose of diuretics as outpatient to avoid reduced preload in presence of severe 5) medical therapy 6) prognosis guarded Consultation Date/Type/Reason Admit Date/Time Dec 26, 2016 at 17:19 Initial Consult Date 12/27/16 Type of Consultation: cv Referring Provider: MARYSE BRAVO 24 HR Interval Summary Free Text/Dictation in bed, with bed rails, confused, no chest pain, no distress, no palpitations Constitutional: poor po Detailed Summary Respiratory: no complaints Cardiovascular: no complaints Gastrointestinal: no complaints Neurologic: no complaints Exam/Review of Systems Vital Signs Vitals Vital Signs Date Time Temp Pulse Resp B/P Pulse Ox O2 Delivery O2 Flow Rate FiO2 01/01/17 02:25 2.0 01/01/17 02:15 97.3 71 20 103/65 92 12/31/16 14:36 Nasal Cannula Intake and Output 12/31/16 12/31/16 01/01/17 15:00 23:00 07:00 Intake Total 480 ml 200 ml Balance 480 ml 200 ml Exam Constitutional: frail Psych: confusion Head: normocephalic Neck: supple Respiratory: clear to auscultation Cardiovascular: irregular rhythm Gastrointestinal: soft Musculoskeletal: nl extremities to inspection Extremities: normal pulses Results Result Diagram: 12/31/16 0539 12/31/16 0539 Medications Medications Current Medications Ondansetron HCl (Zofran Inj) 4 mg Q6H PRN IV NAUSEA AND/OR VOMITING; Start at 18:00 Heparin Sodium (Porcine) (Heparin (5000 Units/0.5 ml)) 5,000 unit Q8 SC Last administered on 01/01/17t 05:03; Admin Dose 5,000 UNIT; Start 12/26/16 at 22:00 Amitriptyline HCl (Elavil) 25 mg QHS PO Last administered on 12/31/16 21:01; Admin Dose 25 MG; Start 12/26/16 at 21:00 Aspirin (Halfprin) 81 mg DAILY PO Last administered on 12/31/16 08:29; Admin Dose 81 MG; Start 12/27/16 at 09:00 Docusate Sodium (Colace) 200 mg QHS PO Last administered on 12/31/16 21:01; Admin Dose 200 MG; Start 12/26/16 at 21:00 Donepezil HCl (Aricept) 10 mg DAILY PO Last administered on 12/31/16 08:29; Admin Dose 10 MG; Start 12/27/16 at 09:00 Memantine (Namenda) 5 mg BID PO Last administered on 12/31/16 21:01; Admin Dose 5 MG; Start 12/26/16 at 21:00 Risperidone (Risperdal) 0.5 mg QHS PO Last administered on 12/31/16 21:01; Admin Dose 0.5 MG; Start 12/26/16 at 21:00 Tamsulosin HCl (Flomax) 0.4 mg HS PO Last administered on 12/31/16 21:02; Admin Dose 0.4 MG; Start 12/26/16 at 21:00 Lorazepam (Ativan) 0.5 mg Q8H PRN IV agitation Last administered on 12/30/16 21:35; Admin Dose 0.5 MG; Start 12/26/16 at 18:30 Carvedilol (Coreg) 3.125 mg BID PO Last administered on 12/31/16 21:03; Admin Dose 3.125 MG; Start 12/29/16 at 09:00 Haloperidol (Haldol) 3 mg Q8H PRN IM AGITATION/ANXIETY; Start 12/31/16 at 02:00 Furosemide (Lasix) 80 mg DAILY IV Last administered on 12/31/16 08:29; Admin Dose 80 MG; Start 12/31/16 at 09:00 CHARMAINE FANG MD Jan 01, 2017 07:42
[2017-01-01 07:58] VITALS: BP 112/64; RESP 20
[2017-01-01] MEDS: DONEPEZIL 10 MG TAB PO SCH (08:47)
[2017-01-01] MEDS: ASPIRIN (EC) 81 MG TAB PO SCH (08:47)
[2017-01-01] MEDS: MEMANTINE 5 MG TAB PO SCH ×2 (08:47→20:06)
[2017-01-01] MEDS: FUROSEMIDE 40 MG INJ IV SCH (08:48)
--- NOTE | 2017-01-01 13:47 | PN ---
Date/Time of Note Date/Time of Note DATE: 01/01/17 TIME: 13:44 Assessment/Plan VTE Prophylaxis VTE Prophylaxis Intervention: heparin Lines/Catheters IV Catheter Type (from Nrsg): Peripheral IV Urinary Cath still in place: No Assessment/Plan Assessment/Plan Atrial fibrillation, rate controlled Syncope, momentary with no residual effect, ECHO showed EF 25% Possible new onset Seizures Dementia, moderate to severe BPH Mood disorder, questionable likely secondary to dementia Anemia, normocytic, iron deficieny with low iron saturation Pulmonary edema cardiomegaly Plan: IV keppra for seizures, neurology following, EEG pending Cardiology following, EF 25% on ECHO- Cardioloyg has to review ECHO again since they recommended no lasix at this point Heparin for DVT prophylaxis Appreciate cardiology and Neurology help s/p PT evaluation , Fall risk, recommended for SNF placement Case management for SNF placement Exam/Review of Systems Vital Signs Vitals Vital Signs Date Time Temp Pulse Resp B/P Pulse Ox O2 Delivery O2 Flow Rate FiO2 01/01/17 07:58 97.1 66 20 112/64 99 01/01/17 02:25 2.0 12/31/16 14:36 Nasal Cannula Intake and Output 12/31/16 12/31/16 01/01/17 15:00 23:00 07:00 Intake Total 480 ml 200 ml Balance 480 ml 200 ml Exam Constitutional: alert, awake Eyes: EOMI, nl conjunctiva, nl lids Neck: non-tender, supple Respiratory: clear to auscultation, diminished breath sounds, normal air movement Cardiovascular: irregular rhythm, nl pulses Gastrointestinal: non-tender, soft Musculoskeletal: nl extremities to inspection, nl gait and stance 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, nl mental status, nl speech, nl strength Results Result Diagram: 12/31/1639 12/31/16538 Medications Medications Current Medications Ondansetron HCl (Zofran Inj) 4 mg Q6H PRN IV NAUSEA AND/OR VOMITING; Start at 18:00 Heparin Sodium (Porcine) (Heparin (5000 Units/0.5 ml)) 5,000 unit Q8 SC Last administered on 01/01/17 05:03; Admin Dose 5,000 UNIT; Start 12/26/16 at 22:00 Amitriptyline HCl (Elavil) 25 mg QHS PO Last administered on 12/31/16 21:01; Admin Dose 25 MG; Start 12/26/16 at 21:00 Aspirin (Halfprin) 81 mg DAILY PO Last administered on 01/01/17 08:47; Admin Dose 81 MG; Start 12/27/16 at 09:00 Docusate Sodium (Colace) 200 mg QHS PO Last administered on 12/31/16 21:01; Admin Dose 200 MG; Start 12/26/16 at 21:00 Donepezil HCl (Aricept) 10 mg DAILY PO Last administered on 01/01/17 08:47; Admin Dose 10 MG; Start 12/27/16 at 09:00 Memantine (Namenda) 5 mg BID PO Last administered on 01/01/17 08:47; Admin Dose 5 MG; Start 12/26/16 at 21:00 Risperidone (Risperdal) 0.5 mg QHS PO Last administered on 12/31/16 21:01; Admin Dose 0.5 MG; Start 12/26/16 at 21:00 Tamsulosin HCl (Flomax) 0.4 mg HS PO Last administered on 12/31/16 21:02; Admin Dose 0.4 MG; Start 12/26/16 at 21:00 Lorazepam (Ativan) 0.5 mg Q8H PRN IV agitation Last administered on 12/30/16 21:35; Admin Dose 0.5 MG; Start 12/26/16 at 18:30 Carvedilol (Coreg) 3.125 mg BID PO Last administered on 01/01/17 08:47; Admin Dose 3.125 MG; Start 12/29/16 at 09:00 Haloperidol (Haldol) 3 mg Q8H PRN IM AGITATION/ANXIETY; Start 12/31/16 at 02:00 Furosemide (Lasix) 80 mg DAILY IV Last administered on 01/01/17 08:48; Admin Dose 80 MG; Start 12/31/16 at 09:00 OSEI MI MD Jan 01, 2017 13:47
--- NOTE | 2017-01-01 13:51 | PDOCDIS ---
Discharge Instructions CONDITION Patient Condition: Good HOME CARE INSTRUCTIONS: Special Diet: 2g NA ACTIVITY: Activity Restrictions: Slowly Increase Activity Rest between Activity Avoid heavy lifting Avoid Heavy Housework FOLLOW UP/APPOINTMENTS Follow-up Plan follow up with physician at SNF. Follow up with cardiology in 2-3 weeks after discharge OSEI MI MD Jan 01, 2017 13:51
[2017-01-01 14:23] VITALS: BP 104/58; RESP 16
[2017-01-01] MEDS: DOCUSATE SODIUM 100 MG CAP PO SCH (20:05)
[2017-01-01] MEDS: RISPERIDONE 0.25 MG TAB PO SCH (20:05)
[2017-01-01] MEDS: TAMSULOSIN (SR) 0.4 MG CAP PO SCH (20:05)
[2017-01-01] MEDS: AMITRIPTYLINE 25 MG TAB PO SCH (20:06)
[2017-01-02 02:00] VITALS: BP 122/57; PULSE 82; RESP 20
[2017-01-02] MEDS: HEPARIN 5,000 UNIT/0.5 ML VIAL SC SCH ×3 (06:27→21:57)
[2017-01-02 07:49] VITALS: BP 112/56; RESP 16
[2017-01-02] MEDS: ASPIRIN (EC) 81 MG TAB PO SCH (08:20)
[2017-01-02] MEDS: MEMANTINE 5 MG TAB PO SCH ×2 (08:20→20:22)
[2017-01-02] MEDS: DONEPEZIL 10 MG TAB PO SCH (08:20)
[2017-01-02] MEDS: FUROSEMIDE 40 MG TAB PO SCH (08:28)
[2017-01-02] MEDS: LORAZEPAM 2 MG INJ IV PRN (08:50)
--- NOTE | 2017-01-02 14:20 | PN ---
Date/Time of Note Date/Time of Note DATE: 01/02/17 TIME: 14:14 Assessment/Plan VTE Prophylaxis VTE Prophylaxis Intervention: SCD's Lines/Catheters IV Catheter Type (from Nrsg): Saline Lock Urinary Cath still in place: No Assessment/Plan Assessment/Plan Assessment 1. Chronic atrial fibrillation, rate controlled 2. Syncope 3. Possible new onset Seizures 4. Dementia, moderate to severe 5. BPH 6. Iron deficiency anemia 7. CHF, chronic with diastolic and systolic dysfunction with EF of 25% 8. Severe aortic stenosis 9. Mild hyperkalemia, her labs from 2 days ago: will check BMP Plan Continue current medications with adjustment as needed. Notes that the patient has refused prophylactic heparin this morning IV keppra for seizures. EEG did not show seizure activity neurology following. Appreciate input Follow-up cardiology recommendations, appreciated input will start ferrous sulfate for iron deficiency. Check FOBT as well Case management looking for SNF placement Subjective 24 Hr Interval Summary Free Text/Dictation No acute distress. Patient has refused prophylactic heparin this morning. Exam/Review of Systems Vital Signs Vitals Vital Signs Date Time Temp Pulse Resp B/P Pulse Ox O2 Delivery O2 Flow Rate FiO2 01/02/17 07:49 98.1 74 16 112/56 94 01/02/17 07:28 5.0 01/02/17 02:00 Room Air Intake and Output 01/01/17 01/01/17 01/02/17 15:00 23:00 07:00 Intake Total 440 ml 240 ml Output Total 600 ml Balance 440 ml -360 ml Exam Constitutional: other (No acute distress) Head: atraumatic, normocephalic Eyes: PERRL Respiratory: clear to auscultation, normal air movement Cardiovascular: regular rate and rhythm, systolic murmur Gastrointestinal: non-tender, soft Extremities: normal pulses Results Result Diagram: 12/31/16 0539 12/31/16 0539 Medications Medications Current Medications Ondansetron HCl (Zofran Inj) 4 mg Q6H PRN IV NAUSEA AND/OR VOMITING; Start at 18:00 Heparin Sodium (Porcine) (Heparin (5000 Units/0.5 ml)) 5,000 unit Q8 SC Last administered on 01/02/17t 06:27; Admin Dose 5,000 UNIT; Start 12/26/16 at 22:00 Amitriptyline HCl (Elavil) 25 mg QHS PO Last administered on 01/01/17 20:06; Admin Dose 25 MG; Start 12/26/16 at 21:00 Aspirin (Halfprin) 81 mg DAILY PO Last administered on 01/02/17 08:20; Admin Dose 81 MG; Start 12/27/16 at 09:00 Docusate Sodium (Colace) 200 mg QHS PO Last administered on 01/01/17 20:05; Admin Dose 200 MG; Start 12/26/16 at 21:00 Donepezil HCl (Aricept) 10 mg DAILY PO Last administered on 01/02/17 08:20; Admin Dose 10 MG; Start 12/27/16 at 09:00 Memantine (Namenda) 5 mg BID PO Last administered on 01/02/17 08:20; Admin Dose 5 MG; Start 12/26/16 at 21:00 Risperidone (Risperdal) 0.5 mg QHS PO Last administered on 01/01/17 20:05; Admin Dose 0.5 MG; Start 12/26/16 at 21:00 Tamsulosin HCl (Flomax) 0.4 mg HS PO Last administered on 01/01/17 20:05; Admin Dose 0.4 MG; Start 12/26/16 at 21:00 Lorazepam (Ativan) 0.5 mg Q8H PRN IV agitation Last administered on 01/02/17 08:50; Admin Dose 0.5 MG; Start 12/26/16 at 18:30 Carvedilol (Coreg) 3.125 mg BID PO Last administered on 01/02/17 08:20; Admin Dose 3.125 MG; Start 12/29/16 at 09:00 Haloperidol (Haldol) 3 mg Q8H PRN IM AGITATION/ANXIETY; Start 12/31/16 at 02:00 Furosemide (Lasix) 40 mg DAILY PO Last administered on 01/02/17 08:28; Admin Dose 40 MG; Start 01/02/17 at 09:00 DELMIS ESPINO MD Jan 02, 2017 14:20
[2017-01-02 14:33] VITALS: BP 108/61; RESP 18
--- NOTE | 2017-01-02 19:14 | CONS ---
Date/Time of Note Date/Time of Note DATE: 01/02/17 TIME: 19:12 Consult Date/Type/Reason Admit Date/Time Dec 26, 2016 at 17:19 Initial Consult Date 12/27/16 Type of Consultation: cv Ordering Provider: MARYSE BRAVO d/w staff no new cardiac events. pt is still confused. no reports of chest pain or syncope Objective Vital Signs Date Time Temp Pulse Resp B/P Pulse Ox O2 Delivery O2 Flow Rate FiO2 01/02/17 14:33 97.8 79 18 108/61 95 01/02/17 07:28 5.0 01/02/17 02:00 Room Air Intake and Output 01/01/17 01/01/17 01/02/17 15:00 23:00 07:00 Intake Total 440 ml 240 ml Output Total 600 ml Balance 440 ml -360 ml Exam GEN: no acute distress CV irregularly irreglar. systolic pulm no wheezes GI soft NT ND no reboudn EXT: trace edema. neuro awake and alert. psych; calm now Results/Medications Result Diagram: 12/31/16 0539 12/31/16 0539 Medications Current Medications Ondansetron HCl (Zofran Inj) 4 mg Q6H PRN IV NAUSEA AND/OR VOMITING; Start at 18:00 Heparin Sodium (Porcine) (Heparin (5000 Units/0.5 ml)) 5,000 unit Q8 SC Last administered on 01/02/17 15:10; Admin Dose 5,000 UNIT; Start 12/26/16 at 22:00 Amitriptyline HCl (Elavil) 25 mg QHS PO Last administered on 01/01/17 20:06; Admin Dose 25 MG; Start 12/26/16 at 21:00 Aspirin (Halfprin) 81 mg DAILY PO Last administered on 01/02/17 08:20; Admin Dose 81 MG; Start 12/27/16 at 09:00 Docusate Sodium (Colace) 200 mg QHS PO Last administered on 01/01/17 20:05; Admin Dose 200 MG; Start 12/26/16 at 21:00 Donepezil HCl (Aricept) 10 mg DAILY PO Last administered on 01/02/17 08:20; Admin Dose 10 MG; Start 12/27/16 at 09:00 Memantine (Namenda) 5 mg BID PO Last administered on 01/02/17 08:20; Admin Dose 5 MG; Start 12/26/16 at 21:00 Risperidone (Risperdal) 0.5 mg QHS PO Last administered on 01/01/17 20:05; Admin Dose 0.5 MG; Start 12/26/16 at 21:00 Tamsulosin HCl (Flomax) 0.4 mg HS PO Last administered on 01/01/17 20:05; Admin Dose 0.4 MG; Start 12/26/16 at 21:00 Lorazepam (Ativan) 0.5 mg Q8H PRN IV agitation Last administered on 01/02/17 08:50; Admin Dose 0.5 MG; Start 12/26/16 at 18:30 Carvedilol (Coreg) 3.125 mg BID PO Last administered on 01/02/17 08:20; Admin Dose 3.125 MG; Start 12/29/16 at 09:00 Haloperidol (Haldol) 3 mg Q8H PRN IM AGITATION/ANXIETY; Start 12/31/16 at 02:00 Furosemide (Lasix) 40 mg DAILY PO Last administered on 01/02/17 08:28; Admin Dose 40 MG; Start 01/02/17 at 09:00 Ferrous Sulfate (Ferrous Sulfate (Ec)) 325 mg TID PO ; Start 01/02/17 at 21:00 Assessment/Plan Chief Complaint/Hosp Course 1.. 2. CAD 3. AFIB 4. encephalopathy 5. anemia Cont current cardiac care. correct lytes prn Dr Zapata or associates will f/u Wednesday Problems: ROS LIN MD Jan 02, 2017 19:14
[2017-01-02 20:00] VITALS: BP 107/58; RESP 20
[2017-01-02] MEDS: FERROUS SULFATE (EC) 325 MG TAB PO SCH (20:22)
[2017-01-02] MEDS: AMITRIPTYLINE 25 MG TAB PO SCH (20:22)
[2017-01-02] MEDS: TAMSULOSIN (SR) 0.4 MG CAP PO SCH (20:22)
[2017-01-02] MEDS: RISPERIDONE 0.25 MG TAB PO SCH (20:22)
[2017-01-02] MEDS: DOCUSATE SODIUM 100 MG CAP PO SCH (20:22)
[2017-01-03] MEDS: LORAZEPAM 2 MG INJ IV PRN (00:50)
[2017-01-03 02:00] VITALS: BP 135/79; RESP 20
[2017-01-03] MEDS: HALOPERIDOL 5 MG INJ IM PRN (03:26)
[2017-01-03] MEDS: HEPARIN 5,000 UNIT/0.5 ML VIAL SC SCH ×3 (05:29→20:48)
[2017-01-03 06:21] LABS: BASOPHIL # 0.1 10^3/ul (0.0-0.1); BASOPHILS % 0.8 % (0.0-2.0); EOSINOPHILS # 0.4 10^3/ul (0.0-0.5); EOSINOPHILS % 4.1 % (0.0-7.0); HEMATOCRIT 36.8 % (42.0-52.0); LYMPHOCYTES # 1.1 10^3/ul (0.8-2.9); LYMPHOCYTES % 12.5 % (15.0-51.0); MEAN CORPUSCULAR HEMOGLOBIN 26.1 pg (29.0-33.0); MEAN CORPUSCULAR HGB CONC 29.9 g/dl (32.0-37.0); MEAN CORPUSCULAR VOLUME 87.4 fl (82.0-101.0); MEAN PLATELET VOLUME 11.3 fl (7.4-10.4); NEUTROPHILS % 70.1 % (39.0-77.0); PLATELET COUNT 225 10^3/UL (140-415); RED BLOOD COUNT 4.21 10^6/ul (4.70-6.10); RED CELL DISTRIBUTION WIDTH 17.4 % (11.5-14.5); WHITE BLOOD COUNT 8.5 10^3/ul (4.8-10.8)
[2017-01-03 06:58] LABS: ALBUMIN 3.3 g/dl (3.3-4.9); ALBUMIN/GLOBULIN RATIO 0.78; BILIRUBIN,INDIRECT 0.9 mg/dl (0-1.1); BILIRUBIN,TOTAL 0.9 mg/dl (0.2-1.3); CALCIUM 9.1 mg/dl (8.4-10.2); CREATININE 0.99 mg/dl (0.61-1.24); POTASSIUM 3.8 mmol/L (3.5-5.1); TOTAL PROTEIN 7.5 g/dl (6.1-8.1)
[2017-01-03 07:54] VITALS: BP 123/56; RESP 22
[2017-01-03] MEDS: FERROUS SULFATE (EC) 325 MG TAB PO SCH ×3 (08:37→20:40)
[2017-01-03] MEDS: DONEPEZIL 10 MG TAB PO SCH (08:38)
[2017-01-03] MEDS: FUROSEMIDE 40 MG TAB PO SCH (08:38)
[2017-01-03] MEDS: ASPIRIN (EC) 81 MG TAB PO SCH (08:39)
[2017-01-03] MEDS: MEMANTINE 5 MG TAB PO SCH ×2 (08:39→20:41)
--- NOTE | 2017-01-03 13:37 | PN ---
Date/Time of Note Date/Time of Note DATE: 01/03/17 TIME: 13:35 Assessment/Plan VTE Prophylaxis VTE Prophylaxis Intervention: SCD's Lines/Catheters [facility] Saline Lock Urinary Cath still in place: No Assessment/Plan Chief Complaint/Hosp Course 1. Syncope. Most probably cardiac in origin because of underlying severe aortic stenosis. Brain imaging negative for any acute findings. Status post evaluation by neurology. 2. Severe aortic stenosis. Aortic valve area of 0.70 cm. The patient is not an ideal candidate for any surgical intervention. 3. Atrial fibrillation. Rate controlled. No systemic anticoagulation because of high risk for bleeding secondary to fall. 4. Cardiomyopathy with ejection fraction of 25%. The patient on blockers. 5. Dementia. Continue frequent reorientation. Continue Namenda and Aricept 6. Benign prostatic hypertrophy. Continue tamsulosin. 7. Fluids, electrolytes, and nutrition. Mechanical soft diet. 8. DVT prophylaxis. Bilateral sequential compression devices. 9. Plan. Continue current management. Await placement to a fdc facility. Problems: Subjective 24 Hr Interval Summary Free Text/Dictation Patient remains confused. Exam/Review of Systems Vital Signs Vitals Vital Signs Date Time Temp Pulse Resp B/P Pulse Ox O2 Delivery O2 Flow Rate FiO2 01/03/17 07:54 97.4 78 22 123/56 95 01/02/17 21:44 5.0 01/02/17 02:00 Room Air Intake and Output 01/02/17 01/02/17 01/03/17 15:00 23:00 07:00 Intake Total 640 ml 120 ml Balance 640 ml 120 ml Exam General: Adequately build 86 year-old male lying in bed in no apparent distress. HEENT: Normocephalic, atraumatic. Eyes: Anicteric sclerae, conjunctivae clear. ENT: Nasal septum midline, oral mucosa moist. Neck supple, no JVD noticed. Respiratory: Bilaterally diminished breath sounds. No use of accessory muscles of respiration. No adventitious breath sounds. Cardiovascular: S1, S2 heard. Grade 3/6 systolic ejection murmur. Abdomen: Soft, nontender, and nondistended. Bowel sounds positive in all 4 quadrants. Genitourinary: Deferred. Extremities: No cyanosis, no clubbing. Trace bilateral pedal edema. Peripheral pulses palpable. Neurologic: The patient is awake and alert. Follows commands. Results Result Diagram: 01/03/17 0503 01/03/17 0503 Results 24 hrs Laboratory Tests Test 01/03/17 05:03 White Blood Count 8.5 Red Blood Count 4.21 L Hemoglobin 11.0 L Hematocrit 36.8 L Mean Corpuscular Volume 87.4 Mean Corpuscular Hemoglobin 26.1 L Mean Corpuscular Hemoglobin Concent 29.9 L Red Cell Distribution Width 17.4 H Platelet Count 225 # Mean Platelet Volume 11.3 H Neutrophils % 70.1 Lymphocytes % 12.5 L Monocytes % 12.0 H Eosinophils % 4.1 Basophils % 0.8 Nucleated Red Blood Cells % 0.0 Neutrophils # (Manual) 6.0 Lymphocytes # 1.1 Monocytes # 1.0 H Eosinophils # 0.4 Basophils # 0.1 Nucleated Red Blood Cells # 0.0 Sodium Level 141 Potassium Level 3.8 Chloride Level 98 Carbon Dioxide Level 31 Anion Gap 16 Blood Urea Nitrogen 38 H Creatinine 0.99 Glucose Level 112 Calcium Level 9.1 Ferritin 58.0 Total Bilirubin 0.9 Direct Bilirubin 0.00 Indirect Bilirubin 0.9 Aspartate Amino Transf (AST/SGOT) 36 Alanine Aminotransferase (ALT/SGPT) 45 Alkaline Phosphatase 100 Total Protein 7.5 Albumin 3.3 Globulin 4.20 H Albumin/Globulin Ratio 0.78 Medications Medications Current Medications Ondansetron HCl (Zofran Inj) 4 mg Q6H PRN IV NAUSEA AND/OR VOMITING; Start at 18:00 Heparin Sodium (Porcine) (Heparin (5000 Units/0.5 ml)) 5,000 unit Q8 SC Last administered on 01/03/17 05:29; Admin Dose 5,000 UNIT; Start 12/26/16 at 22:00 Amitriptyline HCl (Elavil) 25 mg QHS PO Last administered on 01/02/17 20:22; Admin Dose 25 MG; Start 12/26/16 at 21:00 Aspirin (Halfprin) 81 mg DAILY PO Last administered on 01/03/17 08:39; Admin Dose 81 MG; Start 12/27/16 at 09:00 Docusate Sodium (Colace) 200 mg QHS PO Last administered on 01/02/17 20:22; Admin Dose 200 MG; Start 12/26/16 at 21:00 Donepezil HCl (Aricept) 10 mg DAILY PO Last administered on 01/03/17 08:38; Admin Dose 10 MG; Start 12/27/16 at 09:00 Memantine (Namenda) 5 mg BID PO Last administered on 01/03/17 08:39; Admin Dose 5 MG; Start 12/26/16 at 21:00 Risperidone (Risperdal) 0.5 mg QHS PO Last administered on 01/02/17 20:22; Admin Dose 0.5 MG; Start 12/26/16 at 21:00 Tamsulosin HCl (Flomax) 0.4 mg HS PO Last administered on 01/02/17 20:22; Admin Dose 0.4 MG; Start 12/26/16 at 21:00 Lorazepam (Ativan) 0.5 mg Q8H PRN IV agitation Last administered on 01/03/17 00:50; Admin Dose 0.5 MG; Start 12/26/16 at 18:30 Carvedilol (Coreg) 3.125 mg BID PO Last administered on 01/03/17 08:43; Admin Dose 3.125 MG; Start 12/29/16 at 09:00 Haloperidol (Haldol) 3 mg Q8H PRN IM AGITATION/ANXIETY Last administered on 03:26; Admin Dose 3 MG; Start 12/31/16 at 02:00 Furosemide (Lasix) 40 mg DAILY PO Last administered on 01/03/17 08:38; Admin Dose 40 MG; Start 01/02/17 at 09:00 Ferrous Sulfate (Ferrous Sulfate (Ec)) 325 mg TID PO Last administered on 12:27; Admin Dose 325 MG; Start 01/02/17 at 21:00 HOME BOO NP Jan 03, 2017 13:37 HOME BOO NP Jan 03, 2017 13:37
[2017-01-03 14:15] VITALS: BP 97/54; RESP 20
[2017-01-03 20:40] VITALS: BP 83/51; RESP 18
[2017-01-03] MEDS: TAMSULOSIN (SR) 0.4 MG CAP PO SCH (20:40)
[2017-01-03] MEDS: DOCUSATE SODIUM 100 MG CAP PO SCH (20:40)
[2017-01-03] MEDS: RISPERIDONE 0.25 MG TAB PO SCH (20:41)
[2017-01-03] MEDS: AMITRIPTYLINE 25 MG TAB PO SCH (20:47)
[2017-01-04 02:37] VITALS: BP 95/50; RESP 16
[2017-01-04] MEDS: HEPARIN 5,000 UNIT/0.5 ML VIAL SC SCH ×3 (05:29→21:19)
[2017-01-04 05:46] LABS: BASOPHILS % 0.6 % (0.0-2.0); EOSINOPHILS # 0.4 10^3/ul (0.0-0.5); EOSINOPHILS % 6.5 % (0.0-7.0); HEMOGLOBIN 10.4 g/dl (14.0-18.0); LYMPHOCYTES % 15.7 % (15.0-51.0); MEAN CORPUSCULAR HEMOGLOBIN 26.9 pg (29.0-33.0); MEAN CORPUSCULAR HGB CONC 30.6 g/dl (32.0-37.0); MEAN CORPUSCULAR VOLUME 88.1 fl (82.0-101.0); MEAN PLATELET VOLUME 10.7 fl (7.4-10.4); MONOCYTE # 0.7 10^3/ul (0.3-0.9); MONOCYTES % 11.1 % (0.0-11.0); NEUTROPHILS % 65.6 % (39.0-77.0); PLATELET COUNT 188 10^3/UL (140-415); RED BLOOD COUNT 3.86 10^6/ul (4.70-6.10); RED CELL DISTRIBUTION WIDTH 17.2 % (11.5-14.5); WHITE BLOOD COUNT 6.5 10^3/ul (4.8-10.8)
[2017-01-04 06:13] LABS: MAGNESIUM 1.8 mg/dl (1.7-2.5); PHOSPHORUS 3.7 mg/dl (2.5-4.9)
[2017-01-04 06:15] LABS: CALCIUM 8.5 mg/dl (8.4-10.2); CREATININE 1.04 mg/dl (0.61-1.24); POTASSIUM 4.1 mmol/L (3.5-5.1)
[2017-01-04 08:06] VITALS: BP 102/55; RESP 20
[2017-01-04] MEDS: MEMANTINE 5 MG TAB PO SCH ×2 (08:58→21:16)
[2017-01-04] MEDS: ASPIRIN (EC) 81 MG TAB PO SCH (08:58)
[2017-01-04] MEDS: FERROUS SULFATE (EC) 325 MG TAB PO SCH ×3 (08:58→21:16)
[2017-01-04] MEDS: DONEPEZIL 10 MG TAB PO SCH (09:00)
[2017-01-04] MEDS: FUROSEMIDE 40 MG TAB PO SCH (09:00)
[2017-01-04] MEDS: SENNA TAB PO SCH ×2 (10:32→21:16)
--- NOTE | 2017-01-04 13:53 | PN ---
Date/Time of Note Date/Time of Note DATE: 01/04/17 TIME: 13:48 Assessment/Plan VTE Prophylaxis VTE Prophylaxis Intervention: heparin Lines/Catheters IV Catheter Type (from [facility]): Saline Lock Urinary Cath still in place: No Assessment/Plan Chief Complaint/Hosp Course Assessment and plan 1. Syncope. Suspect secondary to cardiac origin because of underlying severe aortic stenosis. Of note patient did have brain imaging is negative for any acute findings. Neurologist did see the patient. Monitor at this time. Stable at present. 2. Severe aortic stenosis. Patient evaluated an ideal candidate for surgical intervention. Continue to monitor. 3. Atrial for ablation. Rate controlled at this time. Not on any anticoagulation due to risk for bleeding secondary to fall 4. Cardiomyopathy with ejection fraction 25%. Continue optimization with beta santiago and cardiovascular medications 5. Underlying dementia. Continue Namenda and Aricept. Continue fall precautions. Continue reorientation. 6. BPH. Continue Flomax Disposition plan: Patient evaluated by physical therapy. Plan for correction facility placement. Will await placement. Follow-up with case management. Discussed plan of care with Dr. Mendoza Problems: Subjective 24 Hr Interval Summary Free Text/Dictation Still confused at times. No specific complaints. Physical therapy at bedside Exam/Review of Systems Vital Signs Vitals Vital Signs Date Time Temp Pulse Resp B/P Pulse Ox O2 Delivery O2 Flow Rate FiO2 01/04/17 08:06 98.0 78 20 102/55 92 01/04/17 05:02 5.0 01/02/17 02:00 Room Air Intake and Output 01/03/17 01/03/17 01/04/17 15:00 23:00 07:00 Intake Total 480 ml 400 ml Output Total 200 ml Balance 280 ml 400 ml Exam Constitutional: alert (But confused) Head: normocephalic Eyes: nl conjunctiva Respiratory: clear to auscultation, normal air movement Cardiovascular: other (Heart murmur auscultated) Gastrointestinal: non-tender, soft Musculoskeletal: No nl gait and stance, No swelling Neurological: confused (Underlying dementia) Skin: nl turgor Results Result Diagram: 01/04/1741901/04/17419 Results 24 hrs Laboratory Tests Test 01/04/17 04:20 White Blood Count 6.5 # Red Blood Count 3.86 L Hemoglobin 10.4 L Hematocrit 34.0 L Mean Corpuscular Volume 88.1 Mean Corpuscular Hemoglobin 26.9 L Mean Corpuscular Hemoglobin Concent 30.6 L Red Cell Distribution Width 17.2 H Platelet Count 188 Mean Platelet Volume 10.7 H Neutrophils % 65.6 Lymphocytes % 15.7 Monocytes % 11.1 H Eosinophils % 6.5 Basophils % 0.6 Nucleated Red Blood Cells % 0.0 Neutrophils # (Manual) 4.3 Lymphocytes # 1.0 Monocytes # 0.7 Eosinophils # 0.4 Basophils # 0.0 Nucleated Red Blood Cells # 0.0 Sodium Level 145 H Potassium Level 4.1 Chloride Level 101 Carbon Dioxide Level 33 H Anion Gap 15 Blood Urea Nitrogen 34 H Creatinine 1.04 Glucose Level 92 Calcium Level 8.5 Phosphorus Level 3.7 Magnesium Level 1.8 Medications Medications Current Medications Ondansetron HCl (Zofran Inj) 4 mg Q6H PRN IV NAUSEA AND/OR VOMITING; Start at 18:00 Heparin Sodium (Porcine) (Heparin (5000 Units/0.5 ml)) 5,000 unit Q8 SC Last administered on 01/04/17 13:42; Admin Dose 5,000 UNIT; Start 12/26/16 at 22:00 Amitriptyline HCl (Elavil) 25 mg QHS PO Last administered on 01/03/17 20:47; Admin Dose 25 MG; Start 12/26/16 at 21:00 Aspirin (Halfprin) 81 mg DAILY PO Last administered on 01/04/17 08:58; Admin Dose 81 MG; Start 12/27/16 at 09:00 Docusate Sodium (Colace) 200 mg QHS PO Last administered on 01/03/17 20:40; Admin Dose 200 MG; Start 12/26/16 at 21:00 Donepezil HCl (Aricept) 10 mg DAILY PO Last administered on 01/04/17 09:00; Admin Dose 10 MG; Start 12/27/16 at 09:00 Memantine (Namenda) 5 mg BID PO Last administered on 01/04/17 08:58; Admin Dose 5 MG; Start 12/26/16 at 21:00 Risperidone (Risperdal) 0.5 mg QHS PO Last administered on 01/03/17 20:41; Admin Dose 0.5 MG; Start 12/26/16 at 21:00 Tamsulosin HCl (Flomax) 0.4 mg HS PO Last administered on 01/03/17 20:40; Admin Dose 0.4 MG; Start 12/26/16 at 21:00 Lorazepam (Ativan) 0.5 mg Q8H PRN IV agitation Last administered on 01/03/17 00:50; Admin Dose 0.5 MG; Start 12/26/16 at 18:30 Carvedilol (Coreg) 3.125 mg BID PO Last administered on 01/03/17 20:47; Admin Dose 3.125 MG; Start 12/29/16 at 09:00 Haloperidol (Haldol) 3 mg Q8H PRN IM AGITATION/ANXIETY Last administered on 03:26; Admin Dose 3 MG; Start 12/31/16 at 02:00 Furosemide (Lasix) 40 mg DAILY PO Last administered on 01/03/17 08:38; Admin Dose 40 MG; Start 01/02/17 at 09:00 Ferrous Sulfate (Ferrous Sulfate (Ec)) 325 mg TID PO Last administered on 13:39; Admin Dose 325 MG; Start 01/02/17 at 21:00 Senna (Senokot) 2 tab BID PO Last administered on 01/04/17 10:32; Admin Dose 2 TAB; Start 01/04/17 at 10:00 Lactulose (Enulose) 20 gm Q6H PRN PO CONSTIPATION; Start 01/04/17 at 10:00 LANDY LOMELI Jan 04, 2017 13:53
[2017-01-04 14:18] VITALS: BP 101/53; RESP 16
--- NOTE | 2017-01-04 15:25 | CONS ---
Date/Time of Note Date/Time of Note DATE: 01/04/17 TIME: 15:23 Assessment/Plan Assessment/Plan Additional Assessment/Plan Syncope Severe aortic stenosis Moderate mitral and tricuspid valve regurgitation Cardiomyopathy with ejection fraction 25% Encephalopathy -She would blood pressure on the lower end, given severe aortic stenosis, would hold diuretic and beta-santiago the current time, blood pressure tolerates, would restart low-dose diuretic to help maintain euvolemic and afterload reduction if renal function and blood pressure tolerates. Consultation Date/Type/Reason Admit Date/Time Dec 26, 2016 at 17:19 Initial Consult Date 12/27/16 Type of Consultation: cv Referring Provider: MARYSE BRAVO 24 HR Interval Summary Free Text/Dictation Patient seen and examined, denies chest pain, palpitations or shortness of breath Exam/Review of Systems Vital Signs Vitals Vital Signs Date Time Temp Pulse Resp B/P Pulse Ox O2 Delivery O2 Flow Rate FiO2 01/04/17 14:18 97.9 80 16 101/53 97 01/04/17 05:02 5.0 01/02/17 02:00 Room Air Intake and Output 01/03/17 01/03/17 01/04/17 15:00 23:00 07:00 Intake Total 480 ml 400 ml Output Total 200 ml Balance 280 ml 400 ml Exam Alert, following commands, no apparent distress, in restraints Head: normocephalic Respiratory: other (Coarse breath sounds bilaterally, no wheezing) Cardiovascular: irregular rhythm, other (S1 heard, diminished S2), systolic murmur Gastrointestinal: bowel sounds, non-tender, soft Extremities: edema (Trace) Results Result Diagram: 01/04/17 0420 01/04/17 0420 Results 24 hrs Laboratory Tests Test 01/04/17 04:20 White Blood Count 6.5 # Red Blood Count 3.86 L Hemoglobin 10.4 L Hematocrit 34.0 L Mean Corpuscular Volume 88.1 Mean Corpuscular Hemoglobin 26.9 L Mean Corpuscular Hemoglobin Concent 30.6 L Red Cell Distribution Width 17.2 H Platelet Count 188 Mean Platelet Volume 10.7 H Neutrophils % 65.6 Lymphocytes % 15.7 Monocytes % 11.1 H Eosinophils % 6.5 Basophils % 0.6 Nucleated Red Blood Cells % 0.0 Neutrophils # (Manual) 4.3 Lymphocytes # 1.0 Monocytes # 0.7 Eosinophils # 0.4 Basophils # 0.0 Nucleated Red Blood Cells # 0.0 Sodium Level 145 H Potassium Level 4.1 Chloride Level 101 Carbon Dioxide Level 33 H Anion Gap 15 Blood Urea Nitrogen 34 H Creatinine 1.04 Glucose Level 92 Calcium Level 8.5 Phosphorus Level 3.7 Magnesium Level 1.8 Medications Medications Current Medications Ondansetron HCl (Zofran Inj) 4 mg Q6H PRN IV NAUSEA AND/OR VOMITING; Start at 18:00 Heparin Sodium (Porcine) (Heparin (5000 Units/0.5 ml)) 5,000 unit Q8 SC Last administered on 01/04/17 13:42; Admin Dose 5,000 UNIT; Start 12/26/16 at 22:00 Amitriptyline HCl (Elavil) 25 mg QHS PO Last administered on 01/03/17 20:47; Admin Dose 25 MG; Start 12/26/16 at 21:00 Aspirin (Halfprin) 81 mg DAILY PO Last administered on 01/04/17 08:58; Admin Dose 81 MG; Start 12/27/16 at 09:00 Docusate Sodium (Colace) 200 mg QHS PO Last administered on 01/03/17 20:40; Admin Dose 200 MG; Start 12/26/16 at 21:00 Donepezil HCl (Aricept) 10 mg DAILY PO Last administered on 01/04/17 09:00; Admin Dose 10 MG; Start 12/27/16 at 09:00 Memantine (Namenda) 5 mg BID PO Last administered on 01/04/17 08:58; Admin Dose 5 MG; Start 12/26/16 at 21:00 Risperidone (Risperdal) 0.5 mg QHS PO Last administered on 01/03/17 20:41; Admin Dose 0.5 MG; Start 12/26/16 at 21:00 Tamsulosin HCl (Flomax) 0.4 mg HS PO Last administered on 01/03/17 20:40; Admin Dose 0.4 MG; Start 12/26/16 at 21:00 Lorazepam (Ativan) 0.5 mg Q8H PRN IV agitation Last administered on 01/03/17 00:50; Admin Dose 0.5 MG; Start 12/26/16 at 18:30 Carvedilol (Coreg) 3.125 mg BID PO Last administered on 01/03/17 20:47; Admin Dose 3.125 MG; Start 12/29/16 at 09:00 Haloperidol (Haldol) 3 mg Q8H PRN IM AGITATION/ANXIETY Last administered on 03:26; Admin Dose 3 MG; Start 12/31/16 at 02:00 Furosemide (Lasix) 40 mg DAILY PO Last administered on 01/03/17 08:38; Admin Dose 40 MG; Start 01/02/17 at 09:00 Ferrous Sulfate (Ferrous Sulfate (Ec)) 325 mg TID PO Last administered on 13:39; Admin Dose 325 MG; Start 01/02/17 at 21:00 Senna (Senokot) 2 tab BID PO Last administered on 01/04/17 10:32; Admin Dose 2 TAB; Start 01/04/17 at 10:00 Lactulose (Enulose) 20 gm Q6H PRN PO CONSTIPATION; Start 01/04/17 at 10:00 Abhilash Estrella DO Jan 04, 2017 15:25
[2017-01-04] MEDS ORDERED: MAGNESIUM SULFATE 2 GM/50 ML 50 ML IVPB ONE (15:30)
[2017-01-04] MEDS: LACTULOSE 30ML CUP PO PRN (17:32)
[2017-01-04 20:25] VITALS: BP 106/66; RESP 16
[2017-01-04] MEDS: TAMSULOSIN (SR) 0.4 MG CAP PO SCH (21:16)
[2017-01-04] MEDS: DOCUSATE SODIUM 100 MG CAP PO SCH (21:16)
[2017-01-04] MEDS: AMITRIPTYLINE 25 MG TAB PO SCH (21:16)
[2017-01-04] MEDS: RISPERIDONE 0.25 MG TAB PO SCH (21:16)
[2017-01-05 03:23] VITALS: BP 110/53; RESP 16
[2017-01-05] MEDS: HEPARIN 5,000 UNIT/0.5 ML VIAL SC SCH ×3 (05:20→21:05)
[2017-01-05 07:40] VITALS: BP 115/58; RESP 16
[2017-01-05] MEDS: DONEPEZIL 10 MG TAB PO SCH (09:10)
[2017-01-05] MEDS: MEMANTINE 5 MG TAB PO SCH ×2 (09:10→20:57)
[2017-01-05] MEDS: FERROUS SULFATE (EC) 325 MG TAB PO SCH ×3 (09:10→20:57)
[2017-01-05] MEDS: ASPIRIN (EC) 81 MG TAB PO SCH (09:11)
[2017-01-05] MEDS: SENNA TAB PO SCH ×2 (09:14→20:57)
--- NOTE | 2017-01-05 13:27 | CONS ---
Date/Time of Note Date/Time of Note DATE: 01/05/17 TIME: 13:26 Assessment/Plan Assessment/Plan Additional Assessment/Plan Syncope Severe aortic stenosis Moderate mitral and tricuspid valve regurgitation Cardiomyopathy with ejection fraction 25% Encephalopathy, improving -Blood pressure trend overall improved. Watch closely for decompensated congestive heart failure and if necessary, would restart low-dose maintenance diuretics as blood pressure and renal function permits. Consultation Date/Type/Reason Admit Date/Time Dec 26, 2016 at 17:19 Initial Consult Date 12/27/16 Type of Consultation: cv Referring Provider: MARYSE BRAVO 24 HR Interval Summary Free Text/Dictation Denies shortness of breath, palpitations or chest pain Exam/Review of Systems Vital Signs Vitals Vital Signs Date Time Temp Pulse Resp B/P Pulse Ox O2 Delivery O2 Flow Rate FiO2 01/05/17 07:40 97.3 80 16 115/58 97 01/04/17 15:48 21 01/04/17 05:02 5.0 01/02/17 02:00 Room Air Intake and Output 01/04/17 01/04/17 01/05/17 15:00 23:00 07:00 Intake Total 1010 ml 360 ml Output Total 3 ml Balance 1010 ml 357 ml Exam Follows commands, no apparent distress Constitutional: alert Head: normocephalic Respiratory: other (Coarse breath sounds bilaterally, no wheezing) Cardiovascular: other (S1, diminished S2), regular rate and rhythm, systolic murmur Gastrointestinal: bowel sounds, non-tender, soft Extremities: edema (Trace) Results Result Diagram: 01/04/17 04201/04/17 0420 Medications Medications Current Medications Ondansetron HCl (Zofran Inj) 4 mg Q6H PRN IV NAUSEA AND/OR VOMITING; Start at 18:00 Heparin Sodium (Porcine) (Heparin (5000 Units/0.5 ml)) 5,000 unit Q8 SC Last administered on 01/05/17 05:20; Admin Dose 5,000 UNIT; Start 12/26/16 at 22:00 Amitriptyline HCl (Elavil) 25 mg QHS PO Last administered on 01/04/17 21:16; Admin Dose 25 MG; Start 12/26/16 at 21:00 Aspirin (Halfprin) 81 mg DAILY PO Last administered on 01/05/17 09:11; Admin Dose 81 MG; Start 12/27/16 at 09:00 Docusate Sodium (Colace) 200 mg QHS PO Last administered on 01/04/17 21:16; Admin Dose 200 MG; Start 12/26/16 at 21:00 Donepezil HCl (Aricept) 10 mg DAILY PO Last administered on 01/05/17 09:10; Admin Dose 10 MG; Start 12/27/16 at 09:00 Memantine (Namenda) 5 mg BID PO Last administered on 01/05/17 09:10; Admin Dose 5 MG; Start 12/26/16 at 21:00 Risperidone (Risperdal) 0.5 mg QHS PO Last administered on 01/04/17 21:16; Admin Dose 0.5 MG; Start 12/26/16 at 21:00 Tamsulosin HCl (Flomax) 0.4 mg HS PO Last administered on 01/04/17 21:16; Admin Dose 0.4 MG; Start 12/26/16 at 21:00 Lorazepam (Ativan) 0.5 mg Q8H PRN IV agitation Last administered on 01/03/17 00:50; Admin Dose 0.5 MG; Start 12/26/16 at 18:30 Haloperidol (Haldol) 3 mg Q8H PRN IM AGITATION/ANXIETY Last administered on 03:26; Admin Dose 3 MG; Start 12/31/16 at 02:00 Ferrous Sulfate (Ferrous Sulfate (Ec)) 325 mg TID PO Last administered on 09:10; Admin Dose 325 MG; Start 01/02/17 at 21:00 Senna (Senokot) 2 tab BID PO Last administered on 01/05/17 09:14; Admin Dose 2 TAB; Start 01/04/17 at 10:00 Lactulose (Enulose) 20 gm Q6H PRN PO CONSTIPATION Last administered on 17:32; Admin Dose 20 GM; Start 01/04/17 at 10:00 Abhilash Estrella DO Jan 05, 2017 13:27
[2017-01-05 14:15] VITALS: BP 106/54; RESP 16
--- NOTE | 2017-01-05 15:09 | PN ---
Date/Time of Note Date/Time of Note DATE: 01/05/17 TIME: 15:07 Assessment/Plan VTE Prophylaxis VTE Prophylaxis Intervention: heparin Lines/Catheters IV Catheter Type (from [facility]): Peripheral IV Urinary Cath still in place: No Assessment/Plan Chief Complaint/Hosp Course Assessment and plan 1. Syncope. Suspect secondary to cardiac origin because of underlying severe aortic stenosis. Of note patient did have brain imaging is negative for any acute findings. Neurologist did see the patient. Monitor at this time. Stable at present. 2. Severe aortic stenosis. Patient evaluated an ideal candidate for surgical intervention. Continue to monitor. 3. Atrial for ablation. Rate controlled at this time. Not on any anticoagulation due to risk for bleeding secondary to fall 4. Cardiomyopathy with ejection fraction 25%. Continue optimization with beta santiago and cardiovascular medications 5. Underlying dementia. Continue Namenda and Aricept. Continue fall precautions. Continue reorientation. 6. BPH. Continue Flomax Disposition plan: Still waiting for [facility] facility placement. Continue with physical therapy Discussed plan of care with Dr. Mendoza Problems: Subjective 24 Hr Interval Summary Free Text/Dictation No signs or symptoms of distress. Appears more alert and oriented today. Exam/Review of Systems Vital Signs Vitals Vital Signs Date Time Temp Pulse Resp B/P Pulse Ox O2 Delivery O2 Flow Rate FiO2 01/05/17 14:15 97.3 69 16 106/54 93 01/04/17 15:48 21 01/04/17 05:02 5.0 01/02/17 02:00 Room Air Intake and Output 01/04/17 01/04/17 01/05/17 14:59 22:59 06:59 Intake Total 1010 ml 360 ml Output Total 3 ml Balance 1010 ml 357 ml Exam Constitutional: alert (But confused) Head: normocephalic Eyes: nl conjunctiva Respiratory: clear to auscultation, normal air movement Cardiovascular: other (Heart murmur auscultated) Gastrointestinal: non-tender, soft Musculoskeletal: No nl gait and stance, No swelling Neurological: confused (Underlying dementia) Skin: nl turgor Results Result Diagram: 01/04/1741901/04/17419 Medications Medications Current Medications Ondansetron HCl (Zofran Inj) 4 mg Q6H PRN IV NAUSEA AND/OR VOMITING; Start at 18:00 Heparin Sodium (Porcine) (Heparin (5000 Units/0.5 ml)) 5,000 unit Q8 SC Last administered on 01/05/17 05:20; Admin Dose 5,000 UNIT; Start 12/26/16 at 22:00 Amitriptyline HCl (Elavil) 25 mg QHS PO Last administered on 01/04/17 21:16; Admin Dose 25 MG; Start 12/26/16 at 21:00 Aspirin (Halfprin) 81 mg DAILY PO Last administered on 01/05/17 09:11; Admin Dose 81 MG; Start 12/27/16 at 09:00 Docusate Sodium (Colace) 200 mg QHS PO Last administered on 01/04/17 21:16; Admin Dose 200 MG; Start 12/26/16 at 21:00 Donepezil HCl (Aricept) 10 mg DAILY PO Last administered on 01/05/17 09:10; Admin Dose 10 MG; Start 12/27/16 at 09:00 Memantine (Namenda) 5 mg BID PO Last administered on 01/05/17 09:10; Admin Dose 5 MG; Start 12/26/16 at 21:00 Risperidone (Risperdal) 0.5 mg QHS PO Last administered on 01/04/17 21:16; Admin Dose 0.5 MG; Start 12/26/16 at 21:00 Tamsulosin HCl (Flomax) 0.4 mg HS PO Last administered on 01/04/17 21:16; Admin Dose 0.4 MG; Start 12/26/16 at 21:00 Lorazepam (Ativan) 0.5 mg Q8H PRN IV agitation Last administered on 01/03/17 00:50; Admin Dose 0.5 MG; Start 12/26/16 at 18:30 Haloperidol (Haldol) 3 mg Q8H PRN IM AGITATION/ANXIETY Last administered on 03:26; Admin Dose 3 MG; Start 12/31/16 at 02:00 Ferrous Sulfate (Ferrous Sulfate (Ec)) 325 mg TID PO Last administered on 13:24; Admin Dose 325 MG; Start 01/02/17 at 21:00 Senna (Senokot) 2 tab BID PO Last administered on 01/05/17 09:14; Admin Dose 2 TAB; Start 01/04/17 at 10:00 Lactulose (Enulose) 20 gm Q6H PRN PO CONSTIPATION Last administered on t 17:32; Admin Dose 20 GM; Start 01/04/17 at 10:00 LANDY LOMELI Jan 05, 2017 15:09
[2017-01-05 20:00] VITALS: BP 111/74; RESP 19
[2017-01-05] MEDS: DOCUSATE SODIUM 100 MG CAP PO SCH (20:57)
[2017-01-05] MEDS: AMITRIPTYLINE 25 MG TAB PO SCH (20:57)
[2017-01-05] MEDS: TAMSULOSIN (SR) 0.4 MG CAP PO SCH (20:57)
[2017-01-05] MEDS: RISPERIDONE 0.25 MG TAB PO SCH (20:57)
[2017-01-06 02:00] VITALS: BP 110/78; RESP 18
[2017-01-06] MEDS: HEPARIN 5,000 UNIT/0.5 ML VIAL SC SCH ×3 (05:11→21:38)
[2017-01-06 07:34] VITALS: BP 103/62; RESP 18
[2017-01-06] MEDS: SENNA TAB PO SCH ×2 (08:53→20:20)
[2017-01-06] MEDS: MEMANTINE 5 MG TAB PO SCH ×2 (08:53→20:20)
[2017-01-06] MEDS: FERROUS SULFATE (EC) 325 MG TAB PO SCH ×3 (08:53→20:20)
[2017-01-06] MEDS: DONEPEZIL 10 MG TAB PO SCH (08:53)
[2017-01-06] MEDS: ASPIRIN (EC) 81 MG TAB PO SCH (08:53)
--- NOTE | 2017-01-06 12:19 | CONS ---
Date/Time of Note Date/Time of Note DATE: 01/06/17 TIME: 12:17 Assessment/Plan Assessment/Plan Additional Assessment/Plan Syncope Severe aortic stenosis Moderate mitral and tricuspid valve regurgitation Cardiomyopathy with ejection fraction 25% Encephalopathy, improving -Blood pressure trend remains stable but on the lower end inhibits use of diuretics at the current time. Clinically appears euvolemic. No new cardiac orders at the current time. Consultation Date/Type/Reason Admit Date/Time Dec 26, 2016 at 17:19 Initial Consult Date 12/27/16 Type of Consultation: cv Referring Provider: MARYSE BRAVO 24 HR Interval Summary Free Text/Dictation Patient seen and examined, denies shortness of breath, chest pain or dizziness Exam/Review of Systems Vital Signs Vitals Vital Signs Date Time Temp Pulse Resp B/P Pulse Ox O2 Delivery O2 Flow Rate FiO2 01/06/17 07:34 98.3 81 18 103/62 95 01/05/17 16:02 21 01/04/17 05:02 5.0 Intake and Output 01/05/17 01/05/17 01/06/17 15:00 23:00 07:00 Intake Total 650 ml 50 ml Output Total 2 ml 3 ml Balance 648 ml 47 ml Exam Awake, follows basic commands, confused at times, no apparent distress Head: normocephalic Respiratory: other (Course breath sounds bilaterally, no wheezing) Cardiovascular: other (S1, diminished S2), regular rate and rhythm, systolic murmur Gastrointestinal: bowel sounds, non-tender, soft Extremities: edema (Trace) Results Result Diagram: 01/04/17 04201/04/17 0420 Medications Medications Current Medications Ondansetron HCl (Zofran Inj) 4 mg Q6H PRN IV NAUSEA AND/OR VOMITING; Start at 18:00 Heparin Sodium (Porcine) (Heparin (5000 Units/0.5 ml)) 5,000 unit Q8 SC Last administered on 01/06/17 05:11; Admin Dose 5,000 UNIT; Start 12/26/16 at 22:00 Amitriptyline HCl (Elavil) 25 mg QHS PO Last administered on 01/05/17 20:57; Admin Dose 25 MG; Start 12/26/16 at 21:00 Aspirin (Halfprin) 81 mg DAILY PO Last administered on 01/06/17 08:53; Admin Dose 81 MG; Start 12/27/16 at 09:00 Docusate Sodium (Colace) 200 mg QHS PO Last administered on 01/05/17 20:57; Admin Dose 200 MG; Start 12/26/16 at 21:00 Donepezil HCl (Aricept) 10 mg DAILY PO Last administered on 01/06/17 08:53; Admin Dose 10 MG; Start 12/27/16 at 09:00 Memantine (Namenda) 5 mg BID PO Last administered on 01/06/17 08:53; Admin Dose 5 MG; Start 12/26/16 at 21:00 Risperidone (Risperdal) 0.5 mg QHS PO Last administered on 01/05/17 20:57; Admin Dose 0.5 MG; Start 12/26/16 at 21:00 Tamsulosin HCl (Flomax) 0.4 mg HS PO Last administered on 01/05/17 20:57; Admin Dose 0.4 MG; Start 12/26/16 at 21:00 Lorazepam (Ativan) 0.5 mg Q8H PRN IV agitation Last administered on 01/03/17 00:50; Admin Dose 0.5 MG; Start 12/26/16 at 18:30 Haloperidol (Haldol) 3 mg Q8H PRN IM AGITATION/ANXIETY Last administered on 03:26; Admin Dose 3 MG; Start 12/31/16 at 02:00 Ferrous Sulfate (Ferrous Sulfate (Ec)) 325 mg TID PO Last administered on 08:53; Admin Dose 325 MG; Start 01/02/17 at 21:00 Senna (Senokot) 2 tab BID PO Last administered on 01/06/17 08:53; Admin Dose 2 TAB; Start 01/04/17 at 10:00 Lactulose (Enulose) 20 gm Q6H PRN PO CONSTIPATION Last administered on 17:32; Admin Dose 20 GM; Start 01/04/17 at 10:00 Abhilash Estrella DO Jan 06, 2017 12:19
--- NOTE | 2017-01-06 14:36 | PN ---
Date/Time of Note Date/Time of Note DATE: 01/06/17 TIME: 14:34 Assessment/Plan VTE Prophylaxis VTE Prophylaxis Intervention: heparin Lines/Catheters IV [facility] Saline Lock Urinary Cath still in place: No Assessment/Plan Chief Complaint/Hosp Course Assessment and plan 1. Syncope. Suspect secondary to cardiac origin because of underlying severe aortic stenosis. Of note patient did have brain imaging is negative for any acute findings. Neurologist did see the patient. Monitor at this time. Stable at present. 2. Severe aortic stenosis. Patient evaluated an ideal candidate for surgical intervention. Continue to monitor. 3. Atrial for ablation. Rate controlled at this time. Not on any anticoagulation due to risk for bleeding secondary to fall 4. Cardiomyopathy with ejection fraction 25%. Continue optimization with beta santiago and cardiovascular medications 5. Underlying dementia. Continue Namenda and Aricept. Continue fall precautions. Continue reorientation. 6. BPH. Continue Flomax Disposition plan: Still waiting for residential facility placement. Continue with physical therapy. continue supportive measures. Discussed plan of care with Dr. Mednoza Problems: Subjective 24 Hr Interval Summary Free Text/Dictation resting at this time. no s/s of distress Exam/Review of Systems Vital Signs Vitals Vital Signs Date Time Temp Pulse Resp B/P Pulse Ox O2 Delivery O2 Flow Rate FiO2 01/06/17 11:25 21 01/06/17 07:34 98.3 81 18 103/62 95 01/04/17 05:02 5.0 Intake and Output 01/05/17 01/05/17 01/06/17 15:00 23:00 07:00 Intake Total 650 ml 50 ml Output Total 2 ml 3 ml Balance 648 ml 47 ml Exam Constitutional: alert, more oriented Head: normocephalic Eyes: nl conjunctiva Respiratory: clear to auscultation, normal air movement Cardiovascular: other (Heart murmur auscultated) Gastrointestinal: non-tender, soft Musculoskeletal: No nl gait and stance, No swelling Neurological: more alert but has underlying dementia Skin: nl turgor Results Result Diagram: 01/04/1741901/04/17419 Medications Medications Current Medications Ondansetron HCl (Zofran Inj) 4 mg Q6H PRN IV NAUSEA AND/OR VOMITING; Start at 18:00 Heparin Sodium (Porcine) (Heparin (5000 Units/0.5 ml)) 5,000 unit Q8 SC Last administered on 01/06/17 13:23; Admin Dose 5,000 UNIT; Start 12/26/16 at 22:00 Amitriptyline HCl (Elavil) 25 mg QHS PO Last administered on 01/05/17 20:57; Admin Dose 25 MG; Start 12/26/16 at 21:00 Aspirin (Halfprin) 81 mg DAILY PO Last administered on 01/06/17 08:53; Admin Dose 81 MG; Start 12/27/16 at 09:00 Docusate Sodium (Colace) 200 mg QHS PO Last administered on 01/05/17 20:57; Admin Dose 200 MG; Start 12/26/16 at 21:00 Donepezil HCl (Aricept) 10 mg DAILY PO Last administered on 01/06/17 08:53; Admin Dose 10 MG; Start 12/27/16 at 09:00 Memantine (Namenda) 5 mg BID PO Last administered on 01/06/17 08:53; Admin Dose 5 MG; Start 12/26/16 at 21:00 Risperidone (Risperdal) 0.5 mg QHS PO Last administered on 01/05/17 20:57; Admin Dose 0.5 MG; Start 12/26/16 at 21:00 Tamsulosin HCl (Flomax) 0.4 mg HS PO Last administered on 01/05/17 20:57; Admin Dose 0.4 MG; Start 12/26/16 at 21:00 Lorazepam (Ativan) 0.5 mg Q8H PRN IV agitation Last administered on 01/03/17 00:50; Admin Dose 0.5 MG; Start 12/26/16 at 18:30 Haloperidol (Haldol) 3 mg Q8H PRN IM AGITATION/ANXIETY Last administered on 03:26; Admin Dose 3 MG; Start 12/31/16 at 02:00 Ferrous Sulfate (Ferrous Sulfate (Ec)) 325 mg TID PO Last administered on 13:21; Admin Dose 325 MG; Start 01/02/17 at 21:00 Senna (Senokot) 2 tab BID PO Last administered on 01/06/17 08:53; Admin Dose 2 TAB; Start 01/04/17 at 10:00 Lactulose (Enulose) 20 gm Q6H PRN PO CONSTIPATION Last administered on t 17:32; Admin Dose 20 GM; Start 01/04/17 at 10:00 LANDY LOMELI Jan 06, 2017 14:36
[2017-01-06 14:46] VITALS: BP 108/62; RESP 20
[2017-01-06] MEDS: RISPERIDONE 0.25 MG TAB PO SCH (20:20)
[2017-01-06] MEDS: TAMSULOSIN (SR) 0.4 MG CAP PO SCH (20:20)
[2017-01-06] MEDS: DOCUSATE SODIUM 100 MG CAP PO SCH (20:20)
[2017-01-06 20:57] VITALS: BP 116/67; RESP 18
[2017-01-06 21:25] VITALS: PULSE 86
[2017-01-06] MEDS: AMITRIPTYLINE 25 MG TAB PO SCH (21:37)
[2017-01-07] MEDS: LORAZEPAM 2 MG INJ IV PRN (00:04)
[2017-01-07 02:40] VITALS: BP 128/74; RESP 18
[2017-01-07] MEDS: HALOPERIDOL 5 MG INJ IM PRN (04:38)
[2017-01-07] MEDS: HEPARIN 5,000 UNIT/0.5 ML VIAL SC SCH ×3 (05:38→22:43)
[2017-01-07 08:00] VITALS: BP 127/63; RESP 20
[2017-01-07] MEDS: DONEPEZIL 10 MG TAB PO SCH (08:48)
[2017-01-07] MEDS: MEMANTINE 5 MG TAB PO SCH ×2 (08:48→22:42)
[2017-01-07] MEDS: SENNA TAB PO SCH ×2 (08:48→22:43)
[2017-01-07] MEDS: LACTULOSE 30ML CUP PO PRN (08:48)
[2017-01-07] MEDS: FERROUS SULFATE (EC) 325 MG TAB PO SCH ×3 (08:48→22:42)
[2017-01-07] MEDS: ASPIRIN (EC) 81 MG TAB PO SCH (08:48)
--- NOTE | 2017-01-07 10:48 | PN ---
Date/Time of Note Date/Time of Note DATE: 01/07/17 TIME: 10:40 Assessment/Plan VTE Prophylaxis VTE Prophylaxis Intervention: heparin (Alert oriented) Lines/Catheters IV Catheter Type (from [facility]): Saline Lock Urinary Cath still in place: No Assessment/Plan Chief Complaint/Hosp Course Assessment and plan 1. Syncope. Suspect secondary to cardiac origin because of underlying severe aortic stenosis. Of note patient did have brain imaging is negative for any acute findings. Neurologist did see the patient. Monitor at this time. Stable at present. 2. Severe aortic stenosis. Patient evaluated an ideal candidate for surgical intervention. Continue to monitor. 3. Atrial for ablation. Rate controlled at this time. Not on any anticoagulation due to risk for bleeding secondary to fall 4. Cardiomyopathy with ejection fraction 25%. Continue optimization with beta santiago and cardiovascular medications. stable 5. Underlying dementia. Continue Namenda and Aricept. Continue fall precautions. Continue reorientation.appears stable 6. BPH. Continue Flomax Disposition plan: Still waiting for snf facility placement. participating with PT well. continue current tx Discussed plan of care with Dr. Mendoza Problems: Subjective 24 Hr Interval Summary Free Text/Dictation Seen walking with physical therapy. No signs or symptoms of distress. Tolerating physical therapy well. Exam/Review of Systems Vital Signs Vitals Vital Signs Date Time Temp Pulse Resp B/P Pulse Ox O2 Delivery O2 Flow Rate FiO2 01/07/17 08:00 97.9 88 20 127/63 97 01/06/17 11:25 21 01/04/17 05:02 5.0 Intake and Output 01/06/17 01/06/17 01/07/17 15:00 23:00 07:00 Intake Total 480 ml 320 ml Output Total 3 ml Balance 477 ml 320 ml Exam Constitutional: alert, more oriented , seen walking with physical therapy Head: normocephalic Eyes: nl conjunctiva Respiratory: clear to auscultation, normal air movement Cardiovascular: other (Heart murmur auscultated) Gastrointestinal: non-tender, soft Musculoskeletal: No nl gait and stance, No swelling Neurological: more alert but has underlying dementia Skin: nl turgor Results Result Diagram: 01/04/1741901/04/17419 Medications Medications Current Medications Ondansetron HCl (Zofran Inj) 4 mg Q6H PRN IV NAUSEA AND/OR VOMITING; Start at 18:00 Heparin Sodium (Porcine) (Heparin (5000 Units/0.5 ml)) 5,000 unit Q8 SC Last administered on 01/07/17 05:38; Admin Dose 5,000 UNIT; Start 12/26/16 at 22:00 Amitriptyline HCl (Elavil) 25 mg QHS PO Last administered on 01/06/17 21:37; Admin Dose 25 MG; Start 12/26/16 at 21:00 Aspirin (Halfprin) 81 mg DAILY PO Last administered on 01/07/17 08:48; Admin Dose 81 MG; Start 12/27/16 at 09:00 Docusate Sodium (Colace) 200 mg QHS PO Last administered on 01/06/17 20:20; Admin Dose 200 MG; Start 12/26/16 at 21:00 Donepezil HCl (Aricept) 10 mg DAILY PO Last administered on 01/07/17 08:48; Admin Dose 10 MG; Start 12/27/16 at 09:00 Memantine (Namenda) 5 mg BID PO Last administered on 01/07/17 08:48; Admin Dose 5 MG; Start 12/26/16 at 21:00 Risperidone (Risperdal) 0.5 mg QHS PO Last administered on 01/06/17 20:20; Admin Dose 0.5 MG; Start 12/26/16 at 21:00 Tamsulosin HCl (Flomax) 0.4 mg HS PO Last administered on 01/06/17 20:20; Admin Dose 0.4 MG; Start 12/26/16 at 21:00 Lorazepam (Ativan) 0.5 mg Q8H PRN IV agitation Last administered on 01/07/17 00:04; Admin Dose 0.5 MG; Start 12/26/16 at 18:30 Haloperidol (Haldol) 3 mg Q8H PRN IM AGITATION/ANXIETY Last administered on 04:38; Admin Dose 3 MG; Start 12/31/16 at 02:00 Ferrous Sulfate (Ferrous Sulfate (Ec)) 325 mg TID PO Last administered on 08:48; Admin Dose 325 MG; Start 01/02/17 at 21:00 Senna (Senokot) 2 tab BID PO Last administered on 01/07/17 08:48; Admin Dose 2 TAB; Start 01/04/17 at 10:00 Lactulose (Enulose) 20 gm Q6H PRN PO CONSTIPATION Last administered on 08:48; Admin Dose 20 GM; Start 01/04/17 at 10:00 LANDY LOMELI Jan 07, 2017 10:48
[2017-01-07 14:27] VITALS: BP 97/65; RESP 21
--- NOTE | 2017-01-07 16:23 | CONS ---
Date/Time of Note Date/Time of Note DATE: 01/07/17 TIME: 16:21 Assessment/Plan Assessment/Plan Additional Assessment/Plan Syncope Severe aortic stenosis Moderate mitral and tricuspid valve regurgitation Cardiomyopathy with ejection fraction 25% Encephalopathy, improving -Blood pressure trend remains stable but on the lower end inhibits use of diuretics or afterload reduction agents at the current time. Clinically appears euvolemic. No new cardiac orders at the current time. Consultation Date/Type/Reason Admit Date/Time Dec 26, 2016 at 17:19 Initial Consult Date 12/27/16 Type of Consultation: cv Referring Provider: MARYSE BRAVO 24 HR Interval Summary Free Text/Dictation Patient seen and examined. Sitter at bedside, no shortness of breath noted with walking but did appear unsteady on his feet. Exam/Review of Systems Vital Signs Vitals Vital Signs Date Time Temp Pulse Resp B/P Pulse Ox O2 Delivery O2 Flow Rate FiO2 01/07/17 14:27 98.2 83 21 97/65 96 01/06/17 11:25 21 01/04/17 05:02 5.0 Intake and Output 01/06/17 01/06/17 01/07/17 15:00 23:00 07:00 Intake Total 480 ml 320 ml Output Total 3 ml Balance 477 ml 320 ml Exam Following commands but confused at times, no apparent distress Constitutional: alert Head: normocephalic Respiratory: other (Coarse breath sounds bilaterally, no wheezing) Cardiovascular: regular rate and rhythm, systolic murmur Gastrointestinal: bowel sounds, non-tender, soft Extremities: other (No edema) Results Result Diagram: 01/04/17 0420 01/04/17 0420 Medications Medications Current Medications Ondansetron HCl (Zofran Inj) 4 mg Q6H PRN IV NAUSEA AND/OR VOMITING; Start at 18:00 Heparin Sodium (Porcine) (Heparin (5000 Units/0.5 ml)) 5,000 unit Q8 SC Last administered on 01/07/17 14:30; Admin Dose 5,000 UNIT; Start 12/26/16 at 22:00 Amitriptyline HCl (Elavil) 25 mg QHS PO Last administered on 01/06/17 21:37; Admin Dose 25 MG; Start 12/26/16 at 21:00 Aspirin (Halfprin) 81 mg DAILY PO Last administered on 01/07/17 08:48; Admin Dose 81 MG; Start 12/27/16 at 09:00 Docusate Sodium (Colace) 200 mg QHS PO Last administered on 01/06/17 20:20; Admin Dose 200 MG; Start 12/26/16 at 21:00 Donepezil HCl (Aricept) 10 mg DAILY PO Last administered on 01/07/17 08:48; Admin Dose 10 MG; Start 12/27/16 at 09:00 Memantine (Namenda) 5 mg BID PO Last administered on 01/07/17 08:48; Admin Dose 5 MG; Start 12/26/16 at 21:00 Risperidone (Risperdal) 0.5 mg QHS PO Last administered on 01/06/17 20:20; Admin Dose 0.5 MG; Start 12/26/16 at 21:00 Tamsulosin HCl (Flomax) 0.4 mg HS PO Last administered on 01/06/17 20:20; Admin Dose 0.4 MG; Start 12/26/16 at 21:00 Lorazepam (Ativan) 0.5 mg Q8H PRN IV agitation Last administered on 01/07/17 00:04; Admin Dose 0.5 MG; Start 12/26/16 at 18:30 Haloperidol (Haldol) 3 mg Q8H PRN IM AGITATION/ANXIETY Last administered on 04:38; Admin Dose 3 MG; Start 12/31/16 at 02:00 Ferrous Sulfate (Ferrous Sulfate (Ec)) 325 mg TID PO Last administered on 14:26; Admin Dose 325 MG; Start 01/02/17 at 21:00 Senna (Senokot) 2 tab BID PO Last administered on 01/07/17 08:48; Admin Dose 2 TAB; Start 01/04/17 at 10:00 Lactulose (Enulose) 20 gm Q6H PRN PO CONSTIPATION Last administered on 08:48; Admin Dose 20 GM; Start 01/04/17 at 10:00 Abhilash Estrella DO Jan 07, 2017 16:23
[2017-01-07 20:00] VITALS: BP 103/54; RESP 19
[2017-01-07] MEDS: RISPERIDONE 0.25 MG TAB PO SCH (22:42)
[2017-01-07] MEDS: AMITRIPTYLINE 25 MG TAB PO SCH (22:42)
[2017-01-07] MEDS: DOCUSATE SODIUM 100 MG CAP PO SCH (22:42)
[2017-01-07] MEDS: TAMSULOSIN (SR) 0.4 MG CAP PO SCH (22:43)
[2017-01-08 02:00] VITALS: BP 101/53; RESP 20
[2017-01-08] MEDS: HEPARIN 5,000 UNIT/0.5 ML VIAL SC SCH ×2 (05:55→14:27)
[2017-01-08 07:40] VITALS: BP 109/59; RESP 16
[2017-01-08] MEDS: DONEPEZIL 10 MG TAB PO SCH (09:14)
[2017-01-08] MEDS: FERROUS SULFATE (EC) 325 MG TAB PO SCH ×2 (09:14→14:26)
[2017-01-08] MEDS: MEMANTINE 5 MG TAB PO SCH (09:14)
[2017-01-08] MEDS: SENNA TAB PO SCH (09:14)
[2017-01-08] MEDS: ASPIRIN (EC) 81 MG TAB PO SCH (09:14)
--- NOTE | 2017-01-08 13:05 | CONS ---
Date/Time of Note Date/Time of Note DATE: 01/08/17 TIME: 13:03 Assessment/Plan Assessment/Plan Additional Assessment/Plan Syncope Severe aortic stenosis Moderate mitral and tricuspid valve regurgitation Cardiomyopathy with ejection fraction 25% Encephalopathy, improving -Blood pressure trend remains stable but on the lower end inhibits use of diuretics or afterload reduction agents at the current time. Clinically appears euvolemic. No new cardiac orders at the current time. Consultation Date/Type/Reason Admit Date/Time Dec 26, 2016 at 17:19 Initial Consult Date 12/27/16 Type of Consultation: cv Referring Provider: MARYSE BRAVO 24 HR Interval Summary Free Text/Dictation Patient seen and examined, denies shortness of breath Exam/Review of Systems Vital Signs Vitals Vital Signs Date Time Temp Pulse Resp B/P Pulse Ox O2 Delivery O2 Flow Rate FiO2 01/08/17 07:40 98.0 80 16 109/59 91 01/06/17 11:25 21 Intake and Output 01/07/17 01/07/17 01/08/17 15:00 23:00 07:00 Intake Total 360 ml 240 ml Balance 360 ml 240 ml Exam No apparent distress Constitutional: alert Head: normocephalic Respiratory: other (Coarse breath sounds bilaterally, no wheezing) Cardiovascular: other (S1-S2 heard), regular rate and rhythm Gastrointestinal: bowel sounds, non-tender, soft Extremities: edema (Trace) Results Result Diagram: 01/04/17 0420 01/04/17 0420 Medications Medications Current Medications Ondansetron HCl (Zofran Inj) 4 mg Q6H PRN IV NAUSEA AND/OR VOMITING; Start at 18:00 Heparin Sodium (Porcine) (Heparin (5000 Units/0.5 ml)) 5,000 unit Q8 SC Last administered on 01/08/17 05:55; Admin Dose 5,000 UNIT; Start 12/26/16 at 22:00 Amitriptyline HCl (Elavil) 25 mg QHS PO Last administered on 01/07/17 22:42; Admin Dose 25 MG; Start 12/26/16 at 21:00 Aspirin (Halfprin) 81 mg DAILY PO Last administered on 01/08/17 09:14; Admin Dose 81 MG; Start 12/27/16 at 09:00 Docusate Sodium (Colace) 200 mg QHS PO Last administered on 01/07/17 22:42; Admin Dose 200 MG; Start 12/26/16 at 21:00 Donepezil HCl (Aricept) 10 mg DAILY PO Last administered on 01/08/17 09:14; Admin Dose 10 MG; Start 12/27/16 at 09:00 Memantine (Namenda) 5 mg BID PO Last administered on 01/08/17 09:14; Admin Dose 5 MG; Start 12/26/16 at 21:00 Risperidone (Risperdal) 0.5 mg QHS PO Last administered on 01/07/17 22:42; Admin Dose 0.5 MG; Start 12/26/16 at 21:00 Tamsulosin HCl (Flomax) 0.4 mg HS PO Last administered on 01/07/17 22:43; Admin Dose 0.4 MG; Start 12/26/16 at 21:00 Lorazepam (Ativan) 0.5 mg Q8H PRN IV agitation Last administered on 01/07/17 00:04; Admin Dose 0.5 MG; Start 12/26/16 at 18:30 Haloperidol (Haldol) 3 mg Q8H PRN IM AGITATION/ANXIETY Last administered on 04:38; Admin Dose 3 MG; Start 12/31/16 at 02:00 Ferrous Sulfate (Ferrous Sulfate (Ec)) 325 mg TID PO Last administered on 09:14; Admin Dose 325 MG; Start 01/02/17 at 21:00 Senna (Senokot) 2 tab BID PO Last administered on 01/08/17 09:14; Admin Dose 2 TAB; Start 01/04/17 at 10:00 Lactulose (Enulose) 20 gm Q6H PRN PO CONSTIPATION Last administered on 08:48; Admin Dose 20 GM; Start 01/04/17 at 10:00 Abhilash Estrella DO Jan 08, 2017 13:05
[2017-01-08 14:14] VITALS: BP 104/70; RESP 20
--- NOTE | 2017-01-08 14:42 | PN ---
Date/Time of Note Date/Time of Note DATE: 01/08/17 TIME: 14:31 Assessment/Plan VTE Prophylaxis VTE Prophylaxis Intervention: heparin Lines/Catheters IV [facility] Type (from [facility]): Saline Lock Urinary Cath still in place: No Assessment/Plan Assessment/Plan 1. Syncope. secondary to severe aortic stenosis and CHF. 2. Severe aortic stenosis. needs cardiothoracic surgery consultation 3. Atrial fibrillation. Rate controlled at this time. Not on any anticoagulation due to risk for bleeding secondary to fall 4. Cardiomyopathy with systolic CHF, ejection fraction 25%. Continue optimization with beta santiago and cardiovascular medications. stable 5. Underlying dementia. Continue Namenda and Aricept. Continue fall precautions. Continue reorientation.appears stable 6. BPH. Continue Flomax 7. DVP prophylaxis: heparin Exam/Review of Systems Vital Signs Vitals Vital Signs Date Time Temp Pulse Resp B/P Pulse Ox O2 Delivery O2 Flow Rate FiO2 01/08/17 14:14 97.5 96 20 104/70 97 01/06/17 11:25 21 Intake and Output 01/07/17 01/07/17 01/08/17 15:00 23:00 07:00 Intake Total 360 ml 240 ml Balance 360 ml 240 ml Results Result Diagram: 01/04/17 0420 01/04/17 0420 Medications Medications Current Medications Ondansetron HCl (Zofran Inj) 4 mg Q6H PRN IV NAUSEA AND/OR VOMITING; Start at 18:00 Heparin Sodium (Porcine) (Heparin (5000 Units/0.5 ml)) 5,000 unit Q8 SC Last administered on 01/08/17 05:55; Admin Dose 5,000 UNIT; Start 12/26/16 at 22:00 Amitriptyline HCl (Elavil) 25 mg QHS PO Last administered on 01/07/17 22:42; Admin Dose 25 MG; Start 12/26/16 at 21:00 Aspirin (Halfprin) 81 mg DAILY PO Last administered on 01/08/17 09:14; Admin Dose 81 MG; Start 12/27/16 at 09:00 Docusate Sodium (Colace) 200 mg QHS PO Last administered on 01/07/17 22:42; Admin Dose 200 MG; Start 12/26/16 at 21:00 Donepezil HCl (Aricept) 10 mg DAILY PO Last administered on 01/08/17 09:14; Admin Dose 10 MG; Start 12/27/16 at 09:00 Memantine (Namenda) 5 mg BID PO Last administered on 01/08/17 09:14; Admin Dose 5 MG; Start 12/26/16 at 21:00 Risperidone (Risperdal) 0.5 mg QHS PO Last administered on 01/07/17 22:42; Admin Dose 0.5 MG; Start 12/26/16 at 21:00 Tamsulosin HCl (Flomax) 0.4 mg HS PO Last administered on 01/07/17 22:43; Admin Dose 0.4 MG; Start 12/26/16 at 21:00 Lorazepam (Ativan) 0.5 mg Q8H PRN IV agitation Last administered on 01/07/17 00:04; Admin Dose 0.5 MG; Start 12/26/16 at 18:30 Haloperidol (Haldol) 3 mg Q8H PRN IM AGITATION/ANXIETY Last administered on 04:38; Admin Dose 3 MG; Start 12/31/16 at 02:00 Ferrous Sulfate (Ferrous Sulfate (Ec)) 325 mg TID PO Last administered on 09:14; Admin Dose 325 MG; Start 01/02/17 at 21:00 Senna (Senokot) 2 tab BID PO Last administered on 01/08/17 09:14; Admin Dose 2 TAB; Start 01/04/17 at 10:00 Lactulose (Enulose) 20 gm Q6H PRN PO CONSTIPATION Last administered on 08:48; Admin Dose 20 GM; Start 01/04/17 at 10:00 CARLOS JAQUEZ MD Jan 08, 2017 14:42
[2017-01-08] MEDS ORDERED: TAMS-14 PO (14:48)
--- NOTE | 2017-01-08 14:54 | DS ---
Date/Time of Note Date/Time of Note DATE: 01/08/17 TIME: 14:43 Discharge Summary Admission/Discharge Info Admit Date/Time Dec 26, 2016 at 17:19 Discharge Date/Time Discharge Diagnosis 1. Syncope. secondary to severe aortic stenosis and CHF. 2. Severe aortic stenosis. needs cardiothoracic surgery consultation outpatient 3. Atrial fibrillation. Rate controlled at this time. Not on any anticoagulation due to risk for bleeding secondary to fall 4. Cardiomyopathy with systolic CHF, ejection fraction 25%. not on beta santiago or ALYSA inhibitor due to low BP, follow up with cardiology 5. Underlying dementia. Continue Namenda and Aricept. Continue fall precautions. Continue reorientation.appears stable 6. BPH. on Flomax Patient Condition: Stable Procedures Echocardiogram Report Patient Name: JJ EWING Gender: Male Date: 1930 Study Date: 27-Dec-2016 [place]: [facility] [place] Location: I Ref. Physician: MARYSE BRAVO Quality: Adequate Procedures: Transthoracic echocardiogram with 2D, M-Mode, and Doppler examination, poor subcostal images. Indications: Atrial Fibrillation. Syncope. 2D/M Mode Doppler Measurement Value Normal Ranges Measurement Value Normal Ranges AoR Diam MM 3.9 cm DORA Vmax 0.6 cm2 LVIDd 2D 4.9 3.5 - 5.6 cm DORA VTI 0.6 cm2 LVIDs 2D 4.2 2.1 - 4.1 cm AV Mean Jose 2.7 m/sec LVPWd 2D 1.5 0.6 - 1.1 cm AV Mean PG 33.0 mmHg IVSd 2D 1.7 0.6 - 1.1 cm AV Peak Jose 3.6 m/sec EDV 2D 113.1 cm3 AV Peak PG 51.8 mmHg ESV 2D 75.0 cm3 AV VTI 77.8 cm LA Dimen 2D 4.5 2.3 - 4.0 cm AI Peak PG 48.1 mmHg LVOT Diam 2.1 cm AI Peak Jose 3.5 m/sec AI PHT 390.1 msec LVOT Mean Jose 0.4 m/sec LVOT Mean PG 0.8 mmHg LVOT Peak Jose 0.6 m/sec LVOT Peak PG 1.4 mmHg LVOT VTI 14.6 cm TR Peak Jose 2.8 m/sec TR Peak PG 30.7 mmHg RVSP 33.7 mmHg Findings Left Ventricle: Normal left ventricular cavity size. Moderate concentric left ventricular hypertrophy. Severe left ventricular systolic dysfunction. Ejection fraction is visually estimated at 25 %. Tissue Doppler/Mitral Doppler indices are indeterminate in this study due to the presence of atrial fibrillation, aortic regurgitation and annular calcification. Right Ventricle: Mild to moderate enlargement of right ventricle. Mild to moderate right ventricular hypokinesis. Left Atrium: There is mild enlargement of left atrium. Right Atrium: There is mild enlargement of right atrium. Atrial Septum: Not well visualized. Mitral Valve: Mild mitral leaflet calcification. Moderate mitral annular calcification. Moderate mitral valve regurgitation. Aortic Valve: Severe aortic stenosis. Aortic valve Max velocity 3.60 m/sec. Max PG 52.00 mmHg. Mean PG 33.00 mmHg. Aortic valve area 0.70 cm2. Aortic cusps appear severely calcified. Moderate aortic valve regurgitation. Tricuspid Valve: Normal appearance of the tricuspid valve. Estimated peak PA systolic pressure 34 mmHg. There is moderate tricuspid regurgitation. Pulmonic Valve: Pulmonic valve not well visualized. Pericardium: Normal pericardium with no significant pericardial effusion. Right pleural effusion seen. Aorta: There is mild aortic root dilation. There is mild aortic root calcification. IVC: The IVC is not well visualized. Pulmonary Artery: Not well visualized. Conclusions 1. Normal left ventricular cavity size. Moderate concentric left ventricular hypertrophy. Severe left ventricular systolic dysfunction. Ejection fraction is visually estimated at 25 %. Tissue Doppler/Mitral Doppler indices are indeterminate in this study due to the presence of atrial fibrillation, aortic regurgitation and annular calcification. 2. Mild to moderate enlargement of right ventricle. Mild to moderate right ventricular hypokinesis. 3. There is mild enlargement of left atrium. 4. There is mild enlargement of right atrium. 5. Mild mitral leaflet calcification. Moderate mitral annular calcification. Moderate mitral valve regurgitation. 6. Severe aortic stenosis. Aortic valve Max velocity 3.60 m/sec. Max PG 52.00 mmHg. Mean PG 33.00 mmHg. Aortic valve area 0.70 cm2. Aortic cusps appear severely calcified. Moderate aortic valve regurgitation. 7. Normal appearance of the tricuspid valve. Estimated peak PA systolic pressure 34 mmHg. There is moderate tricuspid regurgitation. 8. Normal pericardium with no significant pericardial effusion. Right pleural effusion seen. 9. There is mild aortic root dilation. There is mild aortic root calcification. 10. The IVC is not well visualized. Electronically Signed By: Nir Zapata 28-Dec-2016 08:12:52 -2100 Patient Name: JJ EWING Study Date: 27-Dec-2016 [place] [id number] Radiology Main Line: [phone] DIAGNOSTIC IMAGING REPORT Patient: JJ EWING : 1930 Age: 86 Sex: M [id number] DOS: 12/27/16 0000 Ordering MD: KEVEN TREADWELL MD Location: [facility] Room/Bed: 512-A PROCEDURE: Carotid Doppler ultrasound CLINICAL INDICATION: TIA TECHNIQUE: Carotid duplex criteria: Multiple real time, kearney scale, and color flow and spectral waveform analysis Doppler ultrasound images of the carotid bifurcations were obtained. Measurements of carotid stenosis is based on peak systolic and diastolic velocity parameters that correlate the residual internal carotid diameter with [place] symptomatic carotid endarterectomy trial (NASCET) based stenosis levels. COMPARISON: None. FINDINGS: On the right, there is heterogeneous irregular plaque at the internal carotid artery bulb . Visual estimate of the plaque is less than 50%. The peak systolic velocities are: Proximal CCA: 57.1 cm/sec. Distal CCA: 54.9 cm/sec. Proximal ICA/bulb: 54.9 cm/sec. Mid ICA: 71.2 cm/sec. Distal ICA: 85.4 cm/sec. ICA/CCA ratio: 1.3. There is no spectral broadening . The external carotid artery is patent. The vertebral artery has antegrade flow. On the left, there is mild heterogeneous irregular plaque at the internal carotid artery bulb . Visual estimate of the plaque is less than 50%. The peak systolic velocities are: Proximal CCA: 48.8 cm/sec. Distal CCA: 55.8 cm/sec. Proximal ICA/bulb: 72.5 cm/sec. Mid ICA: 68.1 cm/sec. Distal ICA: 60.4 cm/sec. ICA/CCA ratio: 1.2. There is no spectral broadening . The external carotid artery is patent. The vertebral artery has antegrade flow. IMPRESSION: 1. Less than 50% stenosis of the right internal carotid artery. 2. Less than 50% stenosis of the left internal carotid artery. 3. Antegrade flow in the vertebral arteries. PRIMARY PARAMETERS ADDITIONAL PARAMETERS DEGREE OF STENOSIS: ICA PSV cm/s PLAQUE ESTIMATE % ICA/CCA PSV RATIO ICA EDV cm/s NORMAL <125 cm/s NONE < 2.0 < 40 cm/s < 50% >125 cm/s < 50% > 2.0 > 40 cm/s 50% - 69% 125 -230 cm/s > 50% 2.0 - 4.0 40 - 100 cm/s >70% < OCCLUSION > 230 cm/s > 70% > 4.0 > 100 cm/s TOTAL OCCLUSION UNDETECTABLE VISIBLE PLAQUE 100% N/A N/A Physician Luis Manuel Date Time Electronically viewed and signed by Physician Luis Manuel on 12/27/2016 18:25 LAUREN/ CC: KEVEN TREADWELL MD Hx of Present Illness Patient is a 86-year-old male with a past medical history of moderate to severe dementia, mood disorder, BPH who presents to [facility] after a syncopal episode at the senior care. Patient's daughter was visiting the patient and taking them on a walk when patient had a brief 2 second syncopal episode which he spontaneously returned to baseline without any residual effects. Patient is currently at baseline mentation per daughter, most of the HPI is taken from daughter at bedside as patient is baseline altered due to his dementia. Patient has been taking medication including Ativan and Risperdal at his senior care given the fact that he would try to leave on his own and would likely get lost. Patient has no apparent history of cardiac or arrhythmia and appears to have good follow-up with medical care. Patient also has mild impairment with ambulation, however patient refuses to use a cane. Patient's diet is varied and patient has a very healthy appetite. Patient does not complain of any chest pain, shortness of breath, difficulty ambulating, nausea, vomiting, pain at this time. Patient does converse in [place], and appears oriented, however does have moments of confusion due to his long-standing history of dementia. Patient admitted for new onset a-fib and syncope. Hospital Course For work up of syncope, echocardiography revealed severe aortic stenosis with DORA 0.7, LVEF 25%. Patient cannot tolerate beta santiago or ALYSA inhibitor due to hypotension. Patient will follow up with cardiology outpatient for further treatment. Patient may need cardiothoracic surgery consultation but the decision will be made per cardiology. Carotid ultrasound no significant stenosis. Home Meds Reported Medications Donepezil* (Donepezil*) 10 Mg Tablet, 10 MG PO DAILY, #30 TAB 12/26/16 Memantine* (Namenda*) 5 Mg Tablet, 5 MG PO BID, #60 TAB 12/26/16 Risperidone* (Risperidone*) 0.5 Mg Tablet, 0.5 MG PO QHS, TAB 12/26/16 Tamsulosin Hcl* (Tamsulosin Hcl*) 0.4 Mg Cap.er.24h, 0.4 MG PO HS, CAP 12/26/16 Lorazepam* (Lorazepam*) 0.5 Mg Tablet, 0.5 MG PO Q4 Y for PAIN, TAB 12/26/16 Docusate Sodium* (Docusate Sodium*) 100 Mg Capsule, 200 MG PO QHS, #60 CAP 12/26/16 Aspirin* (Aspirin* EC) 81 Mg Tablet.dr, 81 MG PO DAILY, TAB 12/26/16 Amitriptyline Hcl* (Amitriptyline Hcl*) 25 Mg Tablet, 25 MG PO QHS, #30 TAB 12/26/16 Follow-up Plan PCP in one week cardiology in one week cardiothoracic surgery in 1-2 weeks Primary Care Provider Not On Staff Doctor CARLOS JAQUEZ MD Jan 08, 2017 14:54
== END 2017-01-08 17:48 | disposition home or self-care (01) | DRG 291 ==
LOC: E/R 13:27 → TEL 17:19 → PP2 12-30 23:50
PROVIDERS: ADMIT Internal Medicine; ATTEND Internal Medicine
PROC: 4A00X4Z Measurement of Central Nervous Electrical Activity, External Approach (ICD-10-PCS; principal; 2016-12-28)
DX: I50.42 Chronic combined systolic (congestive) and diastolic (congestive) heart failure (principal); G93.40 Encephalopathy, unspecified; J81.1 Chronic pulmonary edema; E87.5 Hyperkalemia; I42.9 Cardiomyopathy, unspecified; F03.90 Unspecified dementia, unspecified severity, without behavioral disturbance, psychotic disturbance, mood disturbance, and anxiety; I48.2 Chronic atrial fibrillation; R55 Syncope and collapse; I08.3 Combined rheumatic disorders of mitral, aortic and tricuspid valves; D50.9 Iron deficiency anemia, unspecified; I25.10 Atherosclerotic heart disease of native coronary artery without angina pectoris; N40.0 Benign prostatic hyperplasia without lower urinary tract symptoms; I51.7 Cardiomegaly; F39 Unspecified mood [affective] disorder
CPT/HCPCS: 36415; 70450; 70551; 71010; 80048; 80053; 80076; 80307; 81001; 82550; 82553; 82728; 82962; 83010; 83540; 83615; 83735; 84100; 84484; 85025; 85045; 85610; 85730; 87081; 92526; 92610; 93005; 93306; 93880; 94640; 94664; 95819; 97003; 97110; 97116; 97162; 97166; 97530; 97535; J1630; J1644; J1940; J1953; J2060; J3475; J7030